=== PATIENT | female | born 1955 | race Caucasian/White ===

== ENCOUNTER → 2017-12-23 | Outpatient (CLI) | payer BC | END | disposition home or self-care (01) | LOC: KCIC MAMMO 10:14 | DX: Z12.31 Encounter for screening mammogram for malignant neoplasm of breast (principal) | CPT/HCPCS: 77067 ==

== ENCOUNTER 2019-02-07 10:00 | Emergency (ER) | payer BC ==
[~2019-02-07] VITALS: Ht 149.9 cm; Wt 81.6 kg
[2019-02-07] MEDS ORDERED: NITROGLYCERIN SUBLINGUAL 0.4 MG BOTTLE OF 25. SL PRN (10:30)
[2019-02-07] MEDS ORDERED: ASPIRIN CHEWABLE 81 MG TABLET. PO ONE (10:30)
[2019-02-07 10:33] LABS: BASO # 0.1 x10^3/uL (0.0-0.2); BASO % 1 % (0-3); EOS # 0.3 x10^3/uL (0.0-0.7); EOS % 3 % (0-3); HEMATOCRIT 41.1 % (36.0-47.0); HEMOGLOBIN 13.5 g/dL (12.0-15.5); LYMPH # 3.5 x10^3/uL (1.0-4.8); LYMPH % 35 % (24-48); MEAN CORPUSCULAR HEMOGLOBIN 29 pg (25-35); MEAN CORPUSCULAR HGB CONC 33 g/dL (31-37); MEAN CORPUSCULAR VOLUME 90 fL (79-100); MONO # 0.9 x10^3/uL (0.0-1.1); MONO % 9 % (0-9); NEUT # 5.4 x10^3uL (1.8-7.7); NEUT % 53 % (31-73); PLATELET COUNT 324 x10^3/uL (140-400); RED BLOOD COUNT 4.59 x10^6/uL (3.50-5.40); RED CELL DISTRIBUTION WIDTH 13.8 % (11.5-14.5); WHITE BLOOD COUNT 10.2 x10^3/uL (4.0-11.0)
[2019-02-07 10:46] LABS: CALCIUM 9.3 mg/dL (8.5-10.1); CREATININE 0.6 mg/dL (0.6-1.0); GFR 101.6; POTASSIUM 4.5 mmol/L (3.5-5.1)
--- NOTE | 2019-02-07 10:49 | PHYS DOC ---
Past Medical History Additional Past Medical Histor: Prior uterine CA Past Surgical History: Cholecystectomy, Hysterectomy, Tubal ligation Additional Information: Smoked for 35-40 years. Quit one year ago. Alcohol Use: Rarely Drug Use: None Adult General Chief Complaint Chief Complaint: CHEST PAIN HPI HPI Patient is a 63 year old female who presents with complaining of chest pain. Patient complaining of sudden onset of pressure pain in substernal area since yesterday as a constant pain with radiation to her back. Patient complaining of shortness of breath without dizziness or nausea, palpitation, paresthesia. Patient states the pain was due to maternal last day and this morning was 4/10 with discomfort feeling in her chest and rated her pain 4/10 after taking 2 Advil at 8:30 today. Patient denies history of diabetes, hypertension, coronary artery disease, smoking, dyslipidemia. Patient has positive family history of coronary artery disease. Review of Systems Review of Systems Constitutional: Denies fever or chills [] Eyes: Denies change in visual acuity, redness, or eye pain [] HENT: Denies nasal congestion or sore throat [] Respiratory: Denies cough or shortness of breath [] Cardiovascular: No additional information not addressed in HPI [] GI: Denies abdominal pain, nausea, vomiting, bloody stools or diarrhea [] : Denies dysuria or hematuria [] Musculoskeletal: Denies back pain or joint pain [] Integument: Denies rash or skin lesions [] Neurologic: Denies headache, focal weakness or sensory changes [] Endocrine: Denies polyuria or polydipsia [] All other systems were reviewed and found to be within normal limits, except as documented in this note. Current Medications Current Medications Current Medications Medications (Trade) Dose Ordered Sig/Mimi Start Time Stop Time Status Last Admin Dose Admin Aspirin (Children'S Aspirin) 324 mg 1X ONCE 02/07/19 10:30 02/07/19 10:31 UNV 02/07/19 10:29 324 MG Nitroglycerin (Nitrostat) 0.4 mg PRN Q5MIN PRN 02/07/19 10:30 02/08/19 10:29 UNV 02/07/19 10:29 0.4 MG Physical Exam Physical Exam Constitutional: Well developed, well nourished, mild distress, non-toxic appearance. [] HENT: Normocephalic, atraumatic, oropharynx moist. Eyes: PERRLA, EOMI, conjunctiva normal, no discharge. [] Neck: Normal range of motion, no tenderness, supple, no stridor. [] Cardiovascular:Heart rate regular rhythm, no murmur [] Lungs & Thorax: Bilateral breath sounds clear to auscultation [] Abdomen: Bowel sounds normal, soft, no tenderness, no masses, no pulsatile masses. [] Skin: Warm, dry, no erythema, no rash. [] Back: No tenderness, no CVA tenderness. [] Extremities: No tenderness, no cyanosis, no clubbing, ROM intact, no edema. [] Neurologic: Alert and oriented X 3, normal motor function, normal sensory f unction, no focal deficits noted. [] Psychologic: Affect normal, judgement normal, mood normal. [] Current Patient Data Vital Signs Vital Signs Date Time Temp Pulse Resp B/P (MAP) Pulse Ox O2 Delivery O2 Flow Rate FiO2 02/07/19 10:47 72 16 123/64 (83) 97 Room Air 02/07/19 10:04 98.1 98.1 Lab Values Laboratory Tests Test 02/07/19 10:07 White Blood Count 10.2 x10^3/uL (4.0-11.0) Red Blood Count 4.59 x10^6/uL (3.50-5.40) Hemoglobin 13.5 g/dL (12.0-15.5) Hematocrit 41.1 % (36.0-47.0) Mean Corpuscular Volume 90 fL (79-100) Mean Corpuscular Hemoglobin 29 pg (25-35) Mean Corpuscular Hemoglobin Concent 33 g/dL (31-37) Red Cell Distribution Width 13.8 % (11.5-14.5) Platelet Count 324 x10^3/uL (140-400) Neutrophils (%) (Auto) 53 % (31-73) Lymphocytes (%) (Auto) 35 % (24-48) Monocytes (%) (Auto) 9 % (0-9) Eosinophils (%) (Auto) 3 % (0-3) Basophils (%) (Auto) 1 % (0-3) Neutrophils # (Auto) 5.4 x10^3uL (1.8-7.7) Lymphocytes # (Auto) 3.5 x10^3/uL (1.0-4.8) Monocytes # (Auto) 0.9 x10^3/uL (0.0-1.1) Eosinophils # (Auto) 0.3 x10^3/uL (0.0-0.7) Basophils # (Auto) 0.1 x10^3/uL (0.0-0.2) D-Dimer (Latisha) 0.28 ug/mlFEU (0.00-0.50) Sodium Level 140 mmol/L (136-145) Potassium Level 4.5 mmol/L (3.5-5.1) Chloride Level 104 mmol/L (98-107) Carbon Dioxide Level 28 mmol/L (21-32) Anion Gap 8 (6-14) Blood Urea Nitrogen 20 mg/dL (7-20) Creatinine 0.6 mg/dL (0.6-1.0) Estimated GFR (Cockcroft-Gault) 101.6 BUN/Creatinine Ratio 33 (6-20) H Glucose Level 103 mg/dL (70-99) H Calcium Level 9.3 mg/dL (8.5-10.1) Magnesium Level 2.0 mg/dL (1.8-2.4) Total Bilirubin 0.2 mg/dL (0.2-1.0) Aspartate Amino Transferase (AST) 21 U/L (15-37) Alanine Aminotransferase (ALT) 31 U/L (14-59) Alkaline Phosphatase 82 U/L (46-116) Creatine Kinase 90 U/L (26-192) Creatine Kinase MB (Mass) 1.0 ng/mL (0.0-3.6) Creatine Kinase MB Relative Index 1.1 % (0-4) Troponin I Quantitative < 0.017 ng/mL (0.000-0.055) DX-Stj-T-Type Natriuretic Peptide 44 pg/mL (0-124) Total Protein 7.1 g/dL (6.4-8.2) Albumin 3.8 g/dL (3.4-5.0) Albumin/Globulin Ratio 1.2 (1.0-1.7) Lipase 178 U/L (73-393) Laboratory Tests 02/07/19 10:07 Laboratory Tests 02/07/19 10:07 EKG EKG EKG interpreted by me. EKG at 08 showed normal sinus rhythm at rate of 76, normal [place] and QT intervals, no acute ST and T-wave abnormalities. Radiology/Procedures Radiology/Procedures [facility] [address] [place] [address] IMAGING REPORT Signed PATIENT: DION SANTO ACCOUNT: [id number] : 1955 LOCATION: ER AGE: 63 SEX: F EXAM STATUS: REG ER ORD. PHYSICIAN: DEIDRA PAINTER MD REASON: chest pain/pressure since yesterday PROCEDURE: CHEST PA & LATERAL PA and lateral chest radiographs 02/07/2019 CLINICAL HISTORY: Chest pain and pressure since yesterday. PA and lateral digital radiographs of the chest were obtained. The cardiac silhouette is borderline enlarged. The thoracic aorta is minimally tortuous. Atherosclerotic calcification of the thoracic aorta is seen. Surgical clips are seen within the right upper quadrant abdomen consistent with a cholecystectomy. No acute pulmonary infiltrate is seen. No pleural effusion or pneumothorax is noted. Degenerative changes are seen involving the thoracic spine. IMPRESSION: No acute abnormality is seen. Electronically signed by: Antoine Winkler MD (02/07/2019 10:51 AM) [facility] DICTATED and SIGNED BY: ANTOINE WINKLER MD DATE: 02/07/19 0503 Course & Med Decision Making Course & Med Decision Making Pertinent Labs and Imaging studies reviewed. (See chart for details) Evaluation of patient in ER showed 63-year-old female patient with complaining of substernal chest pain and shortness of breath since yesterday as a constant pain. Patient doesn't have any cardiac risk factors except for family history of coronary artery disease. Patient had unremarkable physical exam and EKG and ch est x-ray and labs including cardiac enzymes and d-dimer. Patient felt better with treatment in ER. Patient was advised to follow-up with her primary care physician for more cardiac workup. Plan discharge patient home to diagnose of noncardiac chest pain. Dragon Disclaimer Dragon Disclaimer This electronic medical record was generated, in whole or in part, using a voice recognition dictation system. Departure Departure Impression: Primary Impression: Acute chest pain Additional Impression: Dyspnea Disposition: HOME, SELF-CARE (at 1136) Condition: IMPROVED Referrals: JUDITH KAT MD (PCP) Patient Instructions: Chest Pain (Nonspecific), Shortness of Breath Additional Instructions: Follow-up with your primary care physician in 2-3 days for more evaluation Return to ER if not getting better Scripts Tramadol Hcl (ULTRAM) 50 Mg Tablet 50 MG PO Q6HRS PRN for PAIN, #14 TAB 0 Refills Prov: DEIDRA PAINTER MD 02/07/19 Problem Qualifiers Additional Impression: Dyspnea Dyspnea type: shortness of breath Qualified Codes: R06.02 - Shortness of breath DEIDRA PAINTER MD February 07, 2019 10:49
[2019-02-07 10:53] LABS: ALBUMIN 3.8 g/dL (3.4-5.0); ALBUMIN/GLOBULIN RATIO 1.2 (1.0-1.7); TOTAL BILIRUBIN 0.2 mg/dL (0.2-1.0); TOTAL PROTEIN 7.1 g/dL (6.4-8.2)
--- NOTE | 2019-02-07 10:54 | RAD ---
PA and lateral chest radiographs 02/07/2019 CLINICAL HISTORY: Chest pain and pressure since yesterday. PA and lateral digital radiographs of the chest were obtained. The cardiac silhouette is borderline enlarged. The thoracic aorta is minimally tortuous. Atherosclerotic calcification of the thoracic aorta is seen. Surgical clips are seen within the right upper quadrant abdomen consistent with a cholecystectomy. No acute pulmonary infiltrate is seen. No pleural effusion or pneumothorax is noted. Degenerative changes are seen involving the thoracic spine. IMPRESSION: No acute abnormality is seen. Electronically signed by: Antoine Winkler MD (02/07/2019 10:51 AM) [facility] [place]
[2019-02-07] MEDS ORDERED: TRAM-48 PO (11:38)
[2019-02-07 11:54] VITALS: BP 121/68
--- NOTE | 2019-02-08 16:37 | EKG ---
[facility] [address] [place] [address] Test Date: 2019-02-07 Test Time: 10:06:24 Pat Name: DION SANTO Department: Room: Gender: F Operations Program Manager: : 1955 Requested By: DEIDRA PAINTER Order Number: [id number] Reading MD: Timmy Ramirez MD Measurements Intervals [place] Rate: 76 P: 62 MN: 154 QRS: 36 QRSD: 74 T: 55 QT: 362 QTc: 411 Interpretive Statements SINUS RHYTHM Electronically Signed On 03-05-2019 14:46:51 CDT by Timmy Ramirez MD
== END 2019-02-07 12:09 | disposition home or self-care (01) ==
LOC: ER 10:00
DX: R07.89 Other chest pain (principal); R06.02 Shortness of breath; Z79.82 Long term (current) use of aspirin; Z90.49 Acquired absence of other specified parts of digestive tract; Z90.710 Acquired absence of both cervix and uterus; Z98.51 Tubal ligation status; Z87.891 Personal history of nicotine dependence
CPT/HCPCS: 36415; 71046; 80053; 82553; 83690; 83735; 83880; 84484; 85025; 85379; 93005; 99285-25

== ENCOUNTER → 2019-08-25 | Outpatient (CLI) | payer BC ==
[~2019-08-25] MED LIST: TRAM-48 PO
--- NOTE | 2019-08-25 18:20 | KCIC ---
7 view lumbar spine HISTORY: Low back pain. FINDINGS: Surgical clips in the right upper quadrant. Mild left convexity lumbar scoliosis. No evidence of spondylolysis. Degenerative changes at the lower lumbar facet joints. Multilevel thoracolumbar marginal spurring. Vertebral body height appears maintained. No evidence of acute fracture or aggressive bone destruction. Partially visualized aorta is calcified. Flexion and extension images demonstrate no significant anterior or posterior subluxation. IMPRESSION: Degenerative changes. 3 view sacrum HISTORY: Low back pain. Sacral arthritis. FINDINGS: Sacral alignment appears grossly intact. No obvious displaced fracture is seen. Sacroiliac joints appear mildly degenerative but are otherwise intact and appearance. IMPRESSION: No definite acute radiographic findings. Electronically signed by: Jose Parham MD (08/25/2019 6:17 PM) [id number]
== END | disposition home or self-care (01) ==
LOC: KCIC 11:55
PROVIDERS: ATTEND Family Medicine
DX: M47.817 Spondylosis without myelopathy or radiculopathy, lumbosacral region (principal); M46.05 Spinal enthesopathy, thoracolumbar region; M41.86 Other forms of scoliosis, lumbar region; I70.0 Atherosclerosis of aorta
CPT/HCPCS: 72114; 72220

== ENCOUNTER → 2019-12-03 | Outpatient (CLI) | payer BC ==
--- NOTE | 2019-12-03 15:49 | KCIC ---
Bilateral digital screening mammograms: Reason for examination: Routine screening. Comparison is made to previous study dated 12/23/2017. Interpretation is made with the benefit of CAD. The skin and nipples show no abnormalities. No abnormal lymph nodes are seen. The breast parenchyma is predominantly fatty. (Breast density: Category A.) There are no dominant masses, suspicious calcifications or architectural distortions. Impression: No evidence of malignancy. Recommend routine screening. BI-RADS Category 1: Negative. "Our facility is accredited by the [employer] Mammography Program." This patient's information has been entered into a reminder system for the patient to be notified with the results of her examination and a target date for the next mammogram. Electronically signed by: Karli Santos MD (12/03/2019 3:46 PM) [id number]
== END | disposition home or self-care (01) ==
LOC: KCIC MAMMO 14:14
PROVIDERS: ATTEND Family Medicine
DX: Z12.31 Encounter for screening mammogram for malignant neoplasm of breast (principal)
CPT/HCPCS: 77067

== ENCOUNTER 2020-03-15 09:35 | Inpatient (IN) | payer BC ==
[~2020-03-15] VITALS: Ht 149.9 cm; Wt 92.5 kg
[2020-03-15] MEDS ORDERED: ASPIRIN 325 MG TABLET PO ONE (10:00)
[2020-03-15] MEDS ORDERED: IV NORMAL SALINE 1000ML BAG 1,000 ML IV ONE (10:00)
--- NOTE | 2020-03-15 10:10 | EKG ---
[facility] [address] [place] [address] Test Date: 2020-03-15 Test Time: 09:41:48 Pat Name: DION SANTO Department: Room: Gender: F Aquatics Specialist: RADHA : 1955 Requested By: HOOD HERNANDES Order Number: [id number] Reading MD: Measurements Intervals [place] Rate: 78 P: 57 SD: 150 QRS: 34 QRSD: 74 T: 51 QT: 360 QTc: 414 Interpretive Statements SINUS RHYTHM VENTRICULAR PREMATURE COMPLEX(ES) ATRIAL PREMATURE COMPLEX(ES) ABNORMAL ECG RI6.01 No previous ECG available for comparison
[2020-03-15 10:11] LABS: BASO # 0.1 x10^3/uL (0.0-0.2); BASO % 1 % (0-3); EOS # 0.2 x10^3/uL (0.0-0.7); EOS % 3 % (0-3); HEMATOCRIT 39.5 % (36.0-47.0); HEMOGLOBIN 13.5 g/dL (12.0-15.5); LYMPH # 2.7 x10^3/uL (1.0-4.8); LYMPH % 28 % (24-48); MEAN CORPUSCULAR HEMOGLOBIN 30 pg (25-35); MEAN CORPUSCULAR HGB CONC 34 g/dL (31-37); MEAN CORPUSCULAR VOLUME 89 fL (79-100); MONO # 0.7 x10^3/uL (0.0-1.1); MONO % 8 % (0-9); NEUT # 5.9 x10^3/uL (1.8-7.7); NEUT % 62 % (31-73); PLATELET COUNT 326 x10^3/uL (140-400); RED BLOOD COUNT 4.44 x10^6/uL (3.50-5.40); RED CELL DISTRIBUTION WIDTH 13.3 % (11.5-14.5); WHITE BLOOD COUNT 9.7 x10^3/uL (4.0-11.0)
[2020-03-15 10:17] LABS: CALCIUM 8.7 mg/dL (8.5-10.1); CREATININE 0.8 mg/dL (0.6-1.0); GFR 72.7; POTASSIUM 4.2 mmol/L (3.5-5.1)
[2020-03-15 10:19] LABS: PARTIAL THROMBOPLASTIN TIME 26 SEC (24-38); PROTHROMBIN TIME PATIENT 12.2 SEC (11.7-14.0)
[2020-03-15 10:23] LABS: ALBUMIN 3.6 g/dL (3.4-5.0); MAGNESIUM 1.9 mg/dL (1.8-2.4); TOTAL BILIRUBIN 0.4 mg/dL (0.2-1.0); TOTAL PROTEIN 7.2 g/dL (6.4-8.2)
[2020-03-15 10:24] LABS: D-DIMER < 0.27 ug/mlFEU (0.00-0.50)
[2020-03-15 10:32] LABS: CREATINE KINASE 72 U/L (26-192)
--- NOTE | 2020-03-15 10:52 | PHYS DOC ---
Past Medical History Past Medical History: Cancer Additional Past Medical Histor: Prior uterine CA Past Surgical History: Cholecystectomy, Hysterectomy, Tubal ligation Smoking Status: Former Smoker Alcohol Use: Rarely Drug Use: None General Adult EDM: Chief Complaint: CHEST PAIN HPI: HPI: Patient is a 64 year old female presents with report of chest "tightness" and shortness of breath x 1 week which has progressively worsened. Reports discomfort currently 1/10. Reports worse with exertion. Denies fever/chills. Denies cough. Reports cardiac risk factors of family history of CAD and former smoker. Denies leg swelling or calf tenderness. Patient reports she recently traveled to [facility] 2 weeks ago but stayed in her cabin and tried to socially distance herself. Patient does live with her daughter who is a local EMT. Review of Systems: Review of Systems: Constitutional: Denies fever or chills Eyes: Denies redness or eye pain HENT: Denies nasal congestion or sore throat Respiratory: Denies cough; reports shortness of breath and dyspnea on exertion Cardiovascular: Reports chest pain; denies palpitations GI: Denies abdominal pain, nausea, or vomiting : Denies dysuria or hematuria Musculoskeletal: Denies back pain or joint pain Integument: Denies rash or skin lesions Neurologic: Denies headache, focal weakness or sensory changes Complete systems were reviewed and found to be within normal limits, except as documented in this note. Heart Score: HEART Score for Chest Pain: HEART Score for Chest Pain Response (Comments) Value History Moderately Suspicious 1 ECG Normal 0 Age >45 - < 65 1 Risk Factors 1 or 2 Risk Factors 1 Troponin < Normal Limit 0 Total 3 Risk Factors: Risk Factors: DM, Current or recent (<one month) smoker, HTN, HLP, family history of CAD, obesity. Risk Scores: Score 0 - 3: 2.5% MACE over next 6 weeks - Discharge Home Score 4 - 6: 20.3% MACE over next 6 weeks - Admit for Clinical Observation Score 7 - 10: 72.7% MACE over next 6 weeks - Early Invasive Strategies Current Medications: Current Medications Medications (Trade) Dose Ordered Sig/Mimi Start Time Stop Time Status Last Admin Dose Admin Aspirin (So Aspirin) 325 mg 1X ONCE 03/15/20 10:00 03/15/20 10:01 DC 03/15/20 10:18 325 MG Sodium Chloride 1,000 ml @ 1,000 mls/hr 1X ONCE 03/15/20 10:00 03/15/20 10:59 03/15/20 10:18 1,000 MLS/HR Allergies: Allergies: Allergies Coded Allergies Type Severity Reaction Last Updated Verified No Known Drug Allergies 03/15/20 No Physical Exam: PE: Constitutional: Well developed, well nourished, no acute distress, non-toxic appearance HENT: Normocephalic, atraumatic, oropharynx moist Eyes: Conjunctiva normal, no discharge Neck: Normal range of motion, no tenderness, supple Cardiovascular: Heart rate normal, regular rhythm Lungs & Thorax: No respiratory distress, equal chest rise and fall Abdomen: Soft, no tenderness Skin: Warm, dry, no erythema, no rash Back: No tenderness, no CVA tenderness Extremities: No tenderness, ROM intact, no edema Neurologic: Alert and oriented X 3, no focal deficits noted Psychologic: Affect normal, judgment normal Current Patient Data: Labs: Laboratory Tests Test 03/15/20 09:17 03/15/20 09:59 White Blood Count 9.7 x10^3/uL (4.0-11.0) Red Blood Count 4.44 x10^6/uL (3.50-5.40) Hemoglobin 13.5 g/dL (12.0-15.5) Hematocrit 39.5 % (36.0-47.0) Mean Corpuscular Volume 89 fL (79-100) Mean Corpuscular Hemoglobin 30 pg (25-35) Mean Corpuscular Hemoglobin Concent 34 g/dL (31-37) Red Cell Distribution Width 13.3 % (11.5-14.5) Platelet Count 326 x10^3/uL (140-400) Neutrophils (%) (Auto) 62 % (31-73) Lymphocytes (%) (Auto) 28 % (24-48) Monocytes (%) (Auto) 8 % (0-9) Eosinophils (%) (Auto) 3 % (0-3) Basophils (%) (Auto) 1 % (0-3) Neutrophils # (Auto) 5.9 x10^3/uL (1.8-7.7) Lymphocytes # (Auto) 2.7 x10^3/uL (1.0-4.8) Monocytes # (Auto) 0.7 x10^3/uL (0.0-1.1) Eosinophils # (Auto) 0.2 x10^3/uL (0.0-0.7) Basophils # (Auto) 0.1 x10^3/uL (0.0-0.2) Sodium Level 142 mmol/L (136-145) Potassium Level 4.2 mmol/L (3.5-5.1) Chloride Level 103 mmol/L (98-107) Carbon Dioxide Level 30 mmol/L (21-32) Anion Gap 9 (6-14) Blood Urea Nitrogen 16 mg/dL (7-20) Creatinine 0.8 mg/dL (0.6-1.0) Estimated GFR (Cockcroft-Gault) 72.7 BUN/Creatinine Ratio 20 (6-20) Glucose Level 108 mg/dL (70-99) H Lactic Acid Level 1.0 mmol/L (0.4-2.0) Calcium Level 8.7 mg/dL (8.5-10.1) Magnesium Level 1.9 mg/dL (1.8-2.4) Total Bilirubin 0.4 mg/dL (0.2-1.0) Aspartate Amino Transferase (AST) 19 U/L (15-37) Alanine Aminotransferase (ALT) 28 U/L (14-59) Alkaline Phosphatase 73 U/L (46-116) Creatine Kinase 72 U/L (26-192) Creatine Kinase MB (Mass) 0.9 ng/mL (0.0-3.6) Creatine Kinase MB Relative Index % (0-4) Troponin I Quantitative < 0.017 ng/mL (0.000-0.055) HH-Ldy-X-Type Natriuretic Peptide 109 pg/mL (0-124) Total Protein 7.2 g/dL (6.4-8.2) Albumin 3.6 g/dL (3.4-5.0) Albumin/Globulin Ratio 1.0 (1.0-1.7) Lipase 183 U/L (73-393) Prothrombin Time 12.2 SEC (11.7-14.0) Prothrombin Time INR 0.9 (0.8-1.1) Activated Partial Thromboplast Time 26 SEC (24-38) D-Dimer (Latisha) < 0.27 ug/mlFEU Laboratory Tests 03/15/20 09:17 Laboratory Tests 03/15/20 09:17 Vital Signs: Vital Signs Date Time Temp Pulse Resp B/P (MAP) Pulse Ox O2 Delivery O2 Flow Rate FiO2 03/15/20 09:37 98.3 76 20 174/77 (109) 95 Room Air 98.3 EKG: EKG: @0941 NSR at 78bpm with PVCs, NO ST elevation, QRS 74ms, QT/QTc 360/414ms Radiology/Procedures: Radiology/Procedures: PROCEDURE: CHEST AP ONLY CHEST AP ONLY History: Chest pain Comparison: February 07, 2019 Findings: Single view of the chest is submitted. Cardiac silhouette is stable, borderline enlarged. There is no new infiltrate, pleural fluid, or pneumothorax. Mild interstitial opacity greater near the lung bases is similar. Impression: 1. No acute radiographic abnormality is identified. Electronically signed by: Siddharth Chavez MD (03/15/2020 11:01 AM) [id number] Course & Med Decision Making: Course & Med Decision Making Pertinent Labs and Imaging studies reviewed. (See chart for details) Patient with cardiac risk factors presents with chest discomfort and dyspnea with exertion. Denies fever. EKG stable. Labs obtained and posted to chart. Initial troponin WNL. D-dimer also WNL. CXR without acute process. Cannot fully exclude COVID-19. Patient reports going to cabin in [facility] but wasn't around anyone except patient's EMT daughter (whom she lives with). COVID testing therefore obtained. Patient requiring admission for further evaluation and treatment. Discussed with Dr. Bird (hospitalist) who is in agreement with admission. Discussed findings and plan with patient and family, who acknowledge understanding and agreement. COVID-19 CRITERIA: The patient was evaluated during the global COVID-19 pandemic, and that diagnosis was suspected/considered upon their initial presentation. Their evaluation, treatment and testing was consistent with current guidelines for patients who present with complaints or symptoms that may be related to COVID-19. Geovanny Disclaimer: Geovanny Disclaimer: This electronic medical record was generated, in whole or in part, using a voice recognition dictation system. Departure Departure Impression: Primary Impression: Chest pain Qualified Codes: R07.9 - Chest pain, unspecified Additional Impressions: Dyspnea on exertion Suspected 2018 novel coronavirus infection Disposition: ADMITTED INPATIENT (observation) Admitting Physician: HIMS (Amery) Condition: STABLE Referrals: JUDITH KAT MD (PCP) Justicifation of Admission Dx: Justifications for Admission: Justification of Admission Dx: Yes Comments: Observation: Dyspnea on exertion, chest pain r/o acs COVID-19 Assessment: COVID-19 Patient Risks: Age 65 or older: No Sign of co-morbidity: Yes Exp to person + for COVID: No Exp to PUI: No Travel from affected area: Yes Lower respiratory symptoms: Yes Fever: No PPE Use: Full PPE with N95 mask or PAPR: Yes HOOD HERNANDES DO Mar 15, 2020 10:52
[2020-03-15] MEDS ORDERED: fentaNYL PF VIAL 100 MCG/2 ML VIAL IV PRN (11:00)
[2020-03-15] MEDS ORDERED: ONDANSETRON PF 4 MG/2 ML VIAL. IV PRN (11:00)
--- NOTE | 2020-03-15 11:03 | RAD ---
CHEST AP ONLY History: Chest pain Comparison: February 07, 2019 Findings: Single view of the chest is submitted. Cardiac silhouette is stable, borderline enlarged. There is no new infiltrate, pleural fluid, or pneumothorax. Mild interstitial opacity greater near the lung bases is similar. Impression: 1. No acute radiographic abnormality is identified. Electronically signed by: Siddharth Chavez MD (03/15/2020 11:01 AM) [id number]
[2020-03-15 11:19] LABS: BILIRUBIN,URINE NEGATIVE (NEG); CLARITY,URINE CLEAR; COLOR,URINE YELLOW; NITRITE,URINE NEGATIVE (NEG); PROTEIN,URINE NEGATIVE (NEG-TRACE); UROBILINOGEN,URINE 0.2 mg/dL (0.2 mg/dL)
[2020-03-15 11:39] LABS: BACTERIA,URINE 0 /HPF (0-FEW); RBC,URINE 0 /HPF (0-2); SQUAMOUS EPITHELIAL CELL,UR FEW /LPF; WBC,URINE OCC /HPF (0-4)
[2020-03-15] MEDS ORDERED: traMADol 50 MG TABLET PO PRN (12:00)
--- NOTE | 2020-03-15 12:11 | HP ---
ADMIT DATE: 03/15/2020 CHIEF COMPLAINT: Chest pain and shortness of breath. HISTORY OF PRESENT ILLNESS: The patient is a pleasant elderly female who presents with chest pain. She has been having some associated fluttering in her chest. She also had some shortness of breath that has been occurring off and on for several weeks, but it got worse today. I discussed the case with ER physician. We are going to admit the patient and rule out COVID-19 because her chest x-ray is slightly abnormal. We are also going to be consulting Cardiology and Pulmonary Medicine. PAST MEDICAL HISTORY: Hysterectomy, cholecystectomy, uterine cancer, tubal ligation, previous tobacco abuse, she quit 2 years ago. ALLERGIES: None. FAMILY HISTORY: Diabetes. SOCIAL HISTORY: She does not smoke currently (she quit 2 years ago). No drinking or drugs. She is retired. MEDICATIONS: Reviewed, please refer to the MRAD. REVIEW OF SYSTEMS: GENERAL: No history of weight change, weakness or fevers. SKIN: No bruising, hair changes or rashes. EYES: No blurred, double or loss of vision. NOSE AND THROAT: No history of nosebleeds, hoarseness or sore throat. HEART: No history of palpitations, chest pain or shortness of breath on exertion. LUNGS: Denies cough, hemoptysis, wheezing or shortness of breath. GASTROINTESTINAL: Denies changes in appetite, nausea, vomiting, diarrhea or constipation. GENITOURINARY: No history of frequency, urgency, hesitancy or nocturia. NEUROLOGIC: Denies history of numbness, tingling, tremor or weakness. PSYCHIATRIC: No history of panic, anxiety or depression. ENDOCRINE: No history of heat or cold intolerance, polyuria or polydipsia. EXTREMITIES: Denies muscle weakness, joint pain, pain on walking or stiffness. PHYSICAL EXAMINATION: VITALS: Within normal limits and are stable. GENERAL: No apparent distress. Alert and oriented. HEENT: Normal cephalic atraumatic, external auditory canals are patent EYES: Extraocular muscles are intact, pupils are equally round and reactive to light and accommodation MUSCULOSKELETAL: Well developed, well nourished, good range of motion ENDOCRINE: No thyromegaly was palpated LYMPHATICS: No cervical chain or axillary nodes were noted HEMATOPOIETIC: No bruising NECK: Supple, no JVD, no thyromegaly was noted. LUNGS: Clear to auscultation in all lung soto without rhonchi or wheezing. HEART: RRR, S1, S2 present. Peripheral pulses intact, no obvious murmurs were noted. ABDOMEN: Soft, nontender. Positive bowel sounds no organomegaly, normal bowel sounds. EXTREMITIES: Without any cyanosis, clubbing, or edema. Pedal pulses intact, Homans sign is negative. NEUROLOGIC: Normal speech, normal tone. A & O x3, moves all extremities, no obvious focal deficits. PSYCHIATRIC: Normal affect, normal mood. Stable. SKIN: No ulcerations or rashes, good skin turgor, no jaundice. VASCULAR: Good capillary refill, neurovascular bundle appears to be intact. LABORATORY DATA: Hematology is normal. Electrolytes are normal. Urinalysis is negative. INR is 0.9. Chest x-ray shows no acute radiographic abnormality, but the cardiac silhouette is borderline. There is mild interstitial opacity, greater near lung bases. ASSESSMENT AND PLAN: Chest pain, palpitation, shortness of breath. The patient has been admitted. We will check serial enzymes, serial EKGs, cardiac monitoring, rule out COVID-19. Consult Pulmonary, consult Cardiology. Home meds, DVT prophylaxis. Full code. YULI MACIEL DO DR: MELVIN/krista JOB#: [id number] / [id number]
[2020-03-15] MEDS ORDERED: IOHEXOL 350 MG/ML 100 ML VIAL. IV ONE ×2 (13:00→13:15)
[2020-03-15] MEDS ORDERED: CONTRAST GIVEN. MC PRN (13:15)
--- NOTE | 2020-03-15 13:49 | CONS ---
DATE OF CONSULTATION: 03/15/2020 PULMONARY CONSULTATION ATTENDING PHYSICIAN: Dr. Bird. REASON FOR CONSULTATION: Chest pain. HISTORY OF PRESENT ILLNESS: The patient is a 64-year-old morbidly obese patient with a BMI of 38. She also has a history of at least 25 years of tobacco use. She presented to the hospital with 2-week history of chest tightness. There was some associated fluttering in her chest as well. She has no cough, no fever, no chills. She describes chest pain as central and going to right to the left. She had some shortness of breath as well. No leg swelling. No nausea, vomiting. No diarrhea. She also has a history of snoring and daytime fatigue. Never had formal sleep study. Chest x-ray was reviewed and was clear. PAST MEDICAL HISTORY: History of morbid obesity, history of tobacco use, possible underlying COPD. PAST SURGICAL HISTORY: Hysterectomy, cholecystectomy, uterine cancer, tubal ligation. ALLERGIES: None. MEDICATIONS: Reviewed as listed in the MRAD. REVIEW OF SYSTEMS: Twelve-point system obtained. Pertinent positives discussed in my history of present illness, otherwise noncontributory. All systems that were negative were reviewed as well. SOCIAL HISTORY: Smoked for 25 years before quitting few years ago. FAMILY HISTORY: Noncontributory to lungs. PHYSICAL EXAMINATION: VITAL SIGNS: Reviewed. Blood pressure on the high side, pulse ox 100% on room air. GENERAL: Visual exam done due to COVID-19 pandemic suspect. No obvious respiratory distress. She is obese. No skin rash. LABORATORY DATA: Reviewed. White cell count 9.7, hemoglobin is 13.5 and platelets are 326. D-dimer less than 0.27. IMPRESSION: 1. Chest tightness for the last 2 weeks along with some intermittent dyspnea. A chest x-ray is clear. No fever. No chills. The differential diagnosis would include anginal pain. The possibility of thromboembolic disease seems less likely in the setting of normal D-dimer, but we will do a CTA chest. 2. 25+ years of tobacco, underlying suspected chronic obstructive pulmonary disease. 3. Less clinical suspicion for COVID-19. 4. Morbid obesity and clinical suspicion for obstructive sleep apnea. RECOMMENDATIONS: 1. Discussed with the patient and the daughter. We will use p.r.n. oxygen. 2. I will do CTA chest for further evaluation. 3. Cardiology consult. 4. Weight loss is advised. 5. Sleep study as an outpatient. 6. Discussed with RN. JESSICA RIVERS MD DR: SIS/krista JOB#: [id number] / [id number] KALLI
[2020-03-15 14:57] VITALS: BP 128/62
[2020-03-15 19:00] VITALS: BP 139/68
[2020-03-15 23:00] VITALS: BP 138/64
[2020-03-16 02:55] VITALS: BP 129/60
[2020-03-16 03:37] LABS: CHOLESTEROL/HDL RATIO 4.2
[2020-03-16 07:00] VITALS: BP 131/80
[2020-03-16] MEDS ORDERED: IOHEXOL 350 MG/ML 100 ML VIAL. IV ONE (07:15)
--- NOTE | 2020-03-16 08:19 | RAD ---
CT ANGIOGRAPHY CHEST INDICATION: CHEST PAIN Comparison: Chest radiograph 03/15/2020. TECHNIQUE: Following the uneventful administration of intravenous contrast, 100 cc Omnipaque 350, axial CT sections were obtained through the lungs and upper abdomen. Multiplanar reconstructions and MIP images were obtained. PQRS compliance statement: One or more of the following individualized dose reduction techniques were utilized for this examination: 1. Automated exposure control 2. Adjustment of the mA and/or kV according to patient size 3. Use of iterative reconstruction technique FINDINGS: Lungs and Airways: Mild bilateral tree-in-bud opacities and centrilobular groundglass nodules with a few scattered groundglass opacities. Paraseptal and centrilobular emphysema. No abnormality of the central airways. Pleura: The pleural spaces are normal. Heart and Mediastinum: The visualized thyroid is normal in size and attenuation. No axillary or supraclavicular lymphadenopathy. Mildly enlarged right hilar lymph node measures 1 cm short axis. The heart and pericardium are within normal limits. The great vessels of the thorax are normal. Abdomen: Cholecystectomy. Bones and Soft Tissues: Degenerative changes of the spine. IMPRESSION: 1. No evidence of pulmonary thromboembolic disease. 2. Mild bilateral tree-in-bud opacities and centrilobular groundglass nodules with a few scattered groundglass opacities, likely representing infectious bronchiolitis or possibly respiratory bronchiolitis (given history of smoking). 2-3 month follow-up chest CT is recommended to assess stability/resolution. 3. Mildly enlarged right hilar lymph node, possibly reactive. Attention on follow-up imaging. Electronically signed by: Siddharth Sharma MD (03/16/2020 8:16 AM) [id number]
--- NOTE | 2020-03-16 08:32 | PDOC2 ---
ROCK MAGALLON HEAD PAPER TESTER 03/16/20 0832: CARDIAC CONSULT DATE OF CONSULT Date of Consult DATE: 03/16/20 TIME: 08:17 REASON FOR CONSULT Reason for Consult: Chest pain, dyspnea REFERRING PHYSICIAN Referring Physician: Claudine SOURCE Source: Chart review, Patient HISTORY OF PRESENT ILLNESS HISTORY OF PRESENT ILLNESS This is a pleasant 64 yo female admitted for complains of chest pain and shortness of breath. Reported that she went to the [employer] and clean a house with bleach due to mold and this was about 3 weeks ago. He has not been having productive cough or intractable coughing and no fever. No complains of fatigue or increasing weakness and does not take any prescription medications. 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 She lives with her daughter. Last time she smoked tobacco was 2 yrs ago with 50 pk yr. In the last week she has been having exertional chest pressure mainly mid chest and nonradiating. Also with short distances felt that she is SOA but no wheezing. Her discomfort typically last about 5 minutes and trigerred mostly by walking. Last night while at rest she did have an episode of chest pressure felt like someone is sitting on her chest lasting about 10 minutes. Overnight no further recurrence. Denies any past VTE, CAD, arrhythmias although at times she feels some skipping beats which she claimed she was told she has PVCs when she was checked but ischemic workup in the past. No associated symptoms of indigestion, n/v, no recent falls or injury and no recent pneumonia. Denies any HTN, HLP nor DM2. Denies any PUD or any reflux symptoms and no routine NSAID use. PAST MEDICAL HISTORY Cardiovascular: No pertinent hx Pulmonary: Other (No pertinent history) CENTRAL NERVOUS SYSTEM: Vertigo GI: No pertinent hx Heme/Onc: Cancer (uterine) Hepatobiliary: Cholelithiasis Psych: No pertinent hx Musculoskeletal: Osteoarthritis Rheumatologic: No pertinent hx Infectious disease: No pertinent hx ENT: No pertinent hx Renal/: No pertinent hx Endocrine: No pertinent hx Dermatology: No pertinent hx PAST SURGICAL HISTORY Past Surgical History: Cholecystectomy, Hysterectomy FAMILY HISTORY Family History: Coronary Artery Disease (father had bypass at 65) SOCIAL HISTORY Smoke: Quit (2 yrs ago) ALCOHOL: rare Drugs: None Lives: with Family (daughter) CURRENT MEDICATIONS CURRENT MEDICATIONS Current Medications Medications (Trade) Dose Ordered Sig/Mimi Route PRN Reason Start Time Stop Time Status Last Admin Dose Admin Aspirin (So Aspirin) 325 mg 1X ONCE PO 03/15/20 10:00 03/15/20 10:01 DC 03/15/20 10:18 Sodium Chloride 1,000 ml @ 1,000 mls/hr 1X ONCE IV 03/15/20 10:00 03/15/20 10:59 DC 03/15/20 10:18 Iohexol (Omnipaque 350 Mg/ml) 100 ml 1X ONCE IV 03/16/20 07:15 03/16/20 07:16 DC 03/16/20 07:40 ALLERGIES ALLERGIES: Coded Allergies: No Known Drug Allergies (Unverified , 03/15/20) ROS Review of System 14 point ROS evaluated with pertinent positives noted per HPI PHYSICAL EXAM General: Alert, Oriented X3, Cooperative, No acute distress HEENT: Atraumatic, Mucous membr. moist/pink Lungs: Clear to auscultation, Normal air movement Heart: Regular rate (SR), Normal S1, Normal S2, No murmurs Abdomen: Soft, No tenderness, Other (obese) Extremities: No cyanosis Skin: No significant lesion Neuro: Normal speech, Sensation intact Psych/Mental Status: Mental status NL, Mood NL MUSCULOSKELETAL: Osteoarthritic changes both hands VITALS/I&O VITALS/I&O: Vital Signs Date Time Temp Pulse Resp B/P (MAP) Pulse Ox O2 Delivery O2 Flow Rate FiO2 03/16/20 08:00 Room Air 03/16/20 07:00 98.0 73 16 131/80 (97) 96 98.0 I & O 03/15/20 03/15/20 03/16/20 15:00 23:00 07:00 Intake Total 200 ml 260 ml Balance 200 ml 260 ml LABS Lab: Laboratory Tests Test 03/15/20 09:17 03/15/20 09:59 03/15/20 10:55 03/15/20 13:50 White Blood Count 9.7 x10^3/uL (4.0-11.0) Red Blood Count 4.44 x10^6/uL (3.50-5.40) Hemoglobin 13.5 g/dL (12.0-15.5) Hematocrit 39.5 % (36.0-47.0) Mean Corpuscular Volume 89 fL (79-100) Mean Corpuscular Hemoglobin 30 pg (25-35) Mean Corpuscular Hemoglobin Concent 34 g/dL (31-37) Red Cell Distribution Width 13.3 % (11.5-14.5) Platelet Count 326 x10^3/uL (140-400) Neutrophils (%) (Auto) 62 % (31-73) Lymphocytes (%) (Auto) 28 % (24-48) Monocytes (%) (Auto) 8 % (0-9) Eosinophils (%) (Auto) 3 % (0-3) Basophils (%) (Auto) 1 % (0-3) Neutrophils # (Auto) 5.9 x10^3/uL (1.8-7.7) Lymphocytes # (Auto) 2.7 x10^3/uL (1.0-4.8) Monocytes # (Auto) 0.7 x10^3/uL (0.0-1.1) Eosinophils # (Auto) 0.2 x10^3/uL (0.0-0.7) Basophils # (Auto) 0.1 x10^3/uL (0.0-0.2) Sodium Level 142 mmol/L (136-145) Potassium Level 4.2 mmol/L (3.5-5.1) Chloride Level 103 mmol/L (98-107) Carbon Dioxide Level 30 mmol/L (21-32) Anion Gap 9 (6-14) Blood Urea Nitrogen 16 mg/dL (7-20) Creatinine 0.8 mg/dL (0.6-1.0) Estimated GFR (Cockcroft-Gault) 72.7 BUN/Creatinine Ratio 20 (6-20) Glucose Level 108 mg/dL (70-99) H Lactic Acid Level 1.0 mmol/L (0.4-2.0) Calcium Level 8.7 mg/dL (8.5-10.1) Magnesium Level 1.9 mg/dL (1.8-2.4) Total Bilirubin 0.4 mg/dL (0.2-1.0) Aspartate Amino Transferase (AST) 19 U/L (15-37) Alanine Aminotransferase (ALT) 28 U/L (14-59) Alkaline Phosphatase 73 U/L (46-116) Creatine Kinase 72 U/L (26-192) Creatine Kinase MB (Mass) 0.9 ng/mL (0.0-3.6) Creatine Kinase MB Relative Index % (0-4) Troponin I Quantitative < 0.017 ng/mL (0.000-0.055) < 0.017 ng/mL (0.000-0.055) RE-Zky-P-Type Natriuretic Peptide 109 pg/mL (0-124) Total Protein 7.2 g/dL (6.4-8.2) Albumin 3.6 g/dL (3.4-5.0) Albumin/Globulin Ratio 1.0 (1.0-1.7) Lipase 183 U/L (73-393) Prothrombin Time 12.2 SEC (11.7-14.0) Prothrombin Time INR 0.9 (0.8-1.1) Activated Partial Thromboplast Time 26 SEC (24-38) D-Dimer (Latisha) < 0.27 ug/mlFEU Urine Collection Type Unknown Urine Color Yellow Urine Clarity Clear Urine pH 6.0 (<5.0-8.0) Urine Specific [place] 1.010 (1.000-1.030) Urine Protein Negative mg/dL (NEG-TRACE) Urine Glucose (UA) Negative mg/dL (NEG) Urine Ketones (Stick) Negative mg/dL (NEG) Urine Blood Negative (NEG) Urine Nitrite Negative (NEG) Urine Bilirubin Negative (NEG) Urine Urobilinogen Dipstick 0.2 mg/dL (0.2 mg/dL) Urine Leukocyte Esterase Negative (NEG) Urine RBC 0 /HPF (0-2) Urine WBC Occ /HPF (0-4) Urine Squamous Epithelial Cells Few /LPF Urine Bacteria 0 /HPF (0-FEW) Test 03/15/20 17:30 03/16/20 03:00 Troponin I Quantitative < 0.017 ng/mL (0.000-0.055) Triglycerides Level 139 mg/dL (0-150) Cholesterol Level 239 mg/dL (0-200) H LDL Cholesterol, Calculated 154 mg/dL (0-100) H VLDL Cholesterol, Calculated 28 mg/dL (0-40) Non-HDL Cholesterol Calculated 182 mg/dL (0-129) H HDL Cholesterol 57 mg/dL (40-60) Cholesterol/HDL Ratio 4.2 Laboratory Tests 03/15/20 09:17 Laboratory Tests 03/15/20 09:17 ASSESSMENT/PLAN ASSESSMENT/PLAN 1. Chest pain with SOUZA: UA features, presently CP free. 2. Possible reactive airway dysfunction with suspected underlying COPD: recent mold exposure and significant bleach use 3 weeks ago 3. HLP 4. Morbid obesity 5. HTN urgency: much better controlled overnight 6. 50 pk yr tobaccoism: quit 2 yrs ago 7. Family hx of CAD Recommendations 1. No PE per CTA. Trops nml and no acute changes to her EKG. pulmonary issues does not explain her chest pressure concerning of unstable angina. Noted covid negative. Will obtain TTE and plan for [facility] tomorrow, risks and benefits disc ussed and agreeable to proceed. 2. ASA, start on statin. 3. Pulmonary consult. YAMILET SAGE MD 03/16/20 1156: CARDIAC CONSULT ASSESSMENT/PLAN ASSESSMENT/PLAN Pt. seen and examined. Agree with above TRANSPORTATION ATTENDANT note. Plan for [facility] tomorrow to definitely rule out CAD as cause of unstable angina. Thanks ROCK MAGALLON APRN Mar 16, 2020 08:32 YAMILET SAGE MD Mar 16, 2020 11:56
[2020-03-16] MEDS: ASPIRIN ENTERIC COATED 81 MG TABLET.DR. PO SCH (09:32)
--- NOTE | 2020-03-16 09:48 | NUR ---
Notified Dr. Garcia that COVID swab is negative, no orders to re-test patient at this time.
--- NOTE | 2020-03-16 10:20 | PDOC ---
PULMONARY PROGRESS NOTES Subjective less chest pain Vitals Vital Signs Date Time Temp Pulse Resp B/P (MAP) Pulse Ox O2 Delivery O2 Flow Rate FiO2 03/16/20 08:00 Room Air 03/16/20 07:00 98.0 73 16 131/80 (97) 96 98.0 General: Alert, No acute distress Lungs: Clear Cardiovascular: S1 Abdomen: Soft Neuro Exam: Alert Extremities: No Edema Skin: Warm Labs Laboratory Tests Test 03/15/20 09:17 03/15/20 09:59 03/15/20 10:55 03/15/20 13:50 White Blood Count 9.7 x10^3/uL (4.0-11.0) Red Blood Count 4.44 x10^6/uL (3.50-5.40) Hemoglobin 13.5 g/dL (12.0-15.5) Hematocrit 39.5 % (36.0-47.0) Mean Corpuscular Volume 89 fL (79-100) Mean Corpuscular Hemoglobin 30 pg (25-35) Mean Corpuscular Hemoglobin Concent 34 g/dL (31-37) Red Cell Distribution Width 13.3 % (11.5-14.5) Platelet Count 326 x10^3/uL (140-400) Neutrophils (%) (Auto) 62 % (31-73) Lymphocytes (%) (Auto) 28 % (24-48) Monocytes (%) (Auto) 8 % (0-9) Eosinophils (%) (Auto) 3 % (0-3) Basophils (%) (Auto) 1 % (0-3) Neutrophils # (Auto) 5.9 x10^3/uL (1.8-7.7) Lymphocytes # (Auto) 2.7 x10^3/uL (1.0-4.8) Monocytes # (Auto) 0.7 x10^3/uL (0.0-1.1) Eosinophils # (Auto) 0.2 x10^3/uL (0.0-0.7) Basophils # (Auto) 0.1 x10^3/uL (0.0-0.2) Sodium Level 142 mmol/L (136-145) Potassium Level 4.2 mmol/L (3.5-5.1) Chloride Level 103 mmol/L (98-107) Carbon Dioxide Level 30 mmol/L (21-32) Anion Gap 9 (6-14) Blood Urea Nitrogen 16 mg/dL (7-20) Creatinine 0.8 mg/dL (0.6-1.0) Estimated GFR (Cockcroft-Gault) 72.7 BUN/Creatinine Ratio 20 (6-20) Glucose Level 108 mg/dL (70-99) Lactic Acid Level 1.0 mmol/L (0.4-2.0) Calcium Level 8.7 mg/dL (8.5-10.1) Magnesium Level 1.9 mg/dL (1.8-2.4) Total Bilirubin 0.4 mg/dL (0.2-1.0) Aspartate Amino Transf (AST/SGOT) 19 U/L (15-37) Alanine Aminotransferase (ALT/SGPT) 28 U/L (14-59) Alkaline Phosphatase 73 U/L (46-116) Creatine Kinase 72 U/L (26-192) Creatine Kinase MB (Mass) 0.9 ng/mL (0.0-3.6) Creatine Kinase MB Relative Index % (0-4) Troponin I Quantitative < 0.017 ng/mL (0.000-0.055) < 0.017 ng/mL (0.000-0.055) JF-Cvy-H-Type Natriuretic Peptide 109 pg/mL (0-124) Total Protein 7.2 g/dL (6.4-8.2) Albumin 3.6 g/dL (3.4-5.0) Albumin/Globulin Ratio 1.0 (1.0-1.7) Lipase 183 U/L (73-393) Prothrombin Time 12.2 SEC (11.7-14.0) Prothromb Time International Ratio 0.9 (0.8-1.1) Activated Partial Thromboplast Time 26 SEC (24-38) D-Dimer (Latisha) < 0.27 ug/mlFEU Urine Collection Type Unknown Urine Color Yellow Urine Clarity Clear Urine pH 6.0 (<5.0-8.0) Urine Specific [place] 1.010 (1.000-1.030) Urine Protein Negative mg/dL (NEG-TRACE) Urine Glucose (UA) Negative mg/dL (NEG) Urine Ketones (Stick) Negative mg/dL (NEG) Urine Blood Negative (NEG) Urine Nitrite Negative (NEG) Urine Bilirubin Negative (NEG) Urine Urobilinogen Dipstick 0.2 mg/dL (0.2 mg/dL) Urine Leukocyte Esterase Negative (NEG) Urine RBC 0 /HPF (0-2) Urine WBC Occ /HPF (0-4) Urine Squamous Epithelial Cells Few /LPF Urine Bacteria 0 /HPF (0-FEW) Coronavirus (COVID-19)(PCR) Not detected (NOT DETECT.) Test 03/15/20 17:30 03/16/20 03:00 Troponin I Quantitative < 0.017 ng/mL (0.000-0.055) Triglycerides Level 139 mg/dL (0-150) Cholesterol Level 239 mg/dL (0-200) LDL Cholesterol, Calculated 154 mg/dL (0-100) VLDL Cholesterol, Calculated 28 mg/dL (0-40) Non-HDL Cholesterol Calculated 182 mg/dL (0-129) HDL Cholesterol 57 mg/dL (40-60) Cholesterol/HDL Ratio 4.2 Laboratory Tests Test 03/15/20 10:55 03/15/20 13:50 03/15/20 17:30 03/16/20 03:00 Urine Collection Type Unknown Urine Color Yellow Urine Clarity Clear Urine pH 6.0 (<5.0-8.0) Urine Specific [place] 1.010 (1.000-1.030) Urine Protein Negative mg/dL (NEG-TRACE) Urine Glucose (UA) Negative mg/dL (NEG) Urine Ketones (Stick) Negative mg/dL (NEG) Urine Blood Negative (NEG) Urine Nitrite Negative (NEG) Urine Bilirubin Negative (NEG) Urine Urobilinogen Dipstick 0.2 mg/dL (0.2 mg/dL) Urine Leukocyte Esterase Negative (NEG) Urine RBC 0 /HPF (0-2) Urine WBC Occ /HPF (0-4) Urine Squamous Epithelial Cells Few /LPF Urine Bacteria 0 /HPF (0-FEW) Coronavirus (COVID-19)(PCR) Not detected (NOT DETECT.) Troponin I Quantitative < 0.017 ng/mL (0.000-0.055) < 0.017 ng/mL (0.000-0.055) Triglycerides Level 139 mg/dL (0-150) Cholesterol Level 239 mg/dL (0-200) LDL Cholesterol, Calculated 154 mg/dL (0-100) VLDL Cholesterol, Calculated 28 mg/dL (0-40) Non-HDL Cholesterol Calculated 182 mg/dL (0-129) HDL Cholesterol 57 mg/dL (40-60) Cholesterol/HDL Ratio 4.2 Medications Active Scripts Medications Dose Route/Sig Max Daily Dose Days Date Category Ultram (Tramadol Hcl) 50 Mg Tablet 50 Mg PO Q6HRS PRN 02/07/19 Rx Impression . 1. Chest tightness for the last 2 weeks along with some intermittent dyspnea. A chest x-ray is clear. No fever. No chills. The differential diagnosis would include anginal pain. The possibility of thromboembolic disease seems less likely in the setting of normal D-dimer, CTA chest neg for PE 2. 25+ years of tobacco, underlying suspected chronic obstructive pulmonary disease. 3. Less clinical suspicion for COVID-19. 4. Morbid obesity and clinical suspicion for obstructive sleep apnea. Plan . 1. Discussed with the patient and the daughter. We will use p.r.n. oxygen. 2. CTA chest with no PE. mild bronchiolitis.mild right hilar adenopathy, likely reactive. add Doxy. repeat ct in 3 months 3. Cardiology rec. cath in am 4. Weight loss is advised. 5. Sleep study as an outpatient. 6. Discussed with RN./ PFT as JESSICA YANG MD Mar 16, 2020 10:20
[2020-03-16 11:40] VITALS: BP 121/56
--- NOTE | 2020-03-16 11:51 | PDOC ---
[employer] PROGRESS NOTE Chief Complaint Chief Complaint Chest pain Shortness of breath Hypoxia Hysterectomy, cholecystectomy, uterine cancer, tubal ligation, previous tobacco abuse, she quit 2 years ago. History of Present Illness History of Present Illness 03/16/2020 Patient seen and examined Her COVID-19 test is negative Her CAT scan does not show any pulmonary emboli Chart reviewed Discussed with RN She is scheduled for cardiac cath in a.m. Vitals/I&O Vitals/I&O: Vital Signs Date Time Temp Pulse Resp B/P (MAP) Pulse Ox O2 Delivery O2 Flow Rate FiO2 03/16/20 11:40 97.8 68 16 121/56 (77) 93 Room Air 97.8 I & O 03/15/20 03/15/20 03/16/20 15:00 23:00 07:00 Intake Total 200 ml 260 ml Balance 200 ml 260 ml Physical Exam General: Alert, Oriented X3, Cooperative, No acute distress Heart: Regular rate (SR), Normal S1, Normal S2, No murmurs Lungs: Clear Abdomen: Soft, No tenderness, Other (obese) Extremities: No cyanosis Skin: No significant lesion Labs Labs: Laboratory Tests Test 03/15/20 13:50 03/15/20 17:30 03/16/20 03:00 Troponin I Quantitative < 0.017 ng/mL (0.000-0.055) < 0.017 ng/mL (0.000-0.055) Triglycerides Level 139 mg/dL (0-150) Cholesterol Level 239 mg/dL (0-200) LDL Cholesterol, Calculated 154 mg/dL (0-100) VLDL Cholesterol, Calculated 28 mg/dL (0-40) Non-HDL Cholesterol Calculated 182 mg/dL (0-129) HDL Cholesterol 57 mg/dL (40-60) Cholesterol/HDL Ratio 4.2 Assessment and Plan Assessmemt and Plan Problems Medical Problems: (1) Chest pain Status: Acute (2) Dyspnea on exertion Status: Acute (3) Suspected 2019 novel coronavirus infection Status: Acute Chest pain Bronchitis and reactive lymphadenopathy on imaging Shortness of breath Hypoxia Hysterectomy, cholecystectomy, uterine cancer, tubal ligation, previous tobacco abuse, she quit 2 years ago. Plan Cardiac cath in a.m. For now continue doxy O2 per nasal cannula PRN nebs Home meds DVT prophylaxis Full code Appreciate subspecialist input Comment Review of Relevant I have reviewed the following items corinne (where applicable) has been applied. Medications: Current Medications Medications (Trade) Dose Ordered Sig/Mimi Route PRN Reason Start Time Stop Time Status Last Admin Dose Admin Iohexol (Omnipaque 350 Mg/ml) 100 ml 1X ONCE IV 03/16/20 07:15 03/16/20 07:16 DC 03/16/20 07:40 Aspirin (Ecotrin) 81 mg [id number] PO 03/16/20 10:00 03/16/20 09:32 Justicifation of Admission Dx: Justifications for Admission: Justification of Admission Dx: Yes Respiratory Failure: Severe Resp Distress Angina: New-Onset YULI MACIEL III DO Mar 16, 2020 11:51
[2020-03-16] MEDS: DOXYCYCLINE HYCLATE 100 MG TABLET PO SCH ×2 (12:18→21:24)
--- NOTE | 2020-03-16 12:25 | CARD ---
MR#: [id number] Date of Study: 03/16/2020 Ordering Physician: ROCK MAGALLON, Referring Physician: ROCK MAGALLON Tech: Isela Flores [facility] APPROVED REPORT EXAM: Two-dimensional and M-mode echocardiogram with Doppler and color Doppler. Other Information Quality : Good INDICATION Chest Pain 2D DIMENSIONS RVDd2.7 (2.9-3.5cm)Left Atrium(2D)3.3 (1.6-4.0cm) IVSd1.0 (0.7-1.1cm)Aortic Root(2D)2.8 (2.0-3.7cm) LVDd4.3 (3.9-5.9cm)LVOT Diameter2.3 (1.8-2.4cm) PWd1.0 (0.7-1.1cm)LVDs2.7 (2.5-4.0cm) FS (%) 39.0 %SV59.2 ml LVEF(%)60.0 (>50%) Aortic Valve AoV Peak James.137.2cm/sAoV VTI28.0cm AO Peak GR.7.5mmHgLVOT Peak James.106.1cm/s AO Mean GR.4mmHgAVA (VMAX)3.23cm2 STEPH (VTI)3.40cm2 Mitral Valve MV E Hggyuhoe49.6cm/sMV DECEL DJDF200xy MV A Ngcldhuj614.5cm/sE/A Ratio0.8 Tricuspid Valve TR P. Ildzridy767oq/sRAP KUTCDZNM0tqDd TR Peak Gr.35arMtVSOY69zxTz Pulmonary Vein S1 Ahmkfyql87.9cm/sD2 Ugzbgeyv62.3cm/s LEFT VENTRICLE The left ventricle is normal size. There is normal left ventricular wall thickness. The left ventricu lar systolic function is normal and the ejection fraction is within normal range. The Ejection Fracti on is 55-60%. Transmitral Doppler flow pattern is Grade I-abnormal relaxation pattern. RIGHT VENTRICLE The right ventricle is normal size. The right ventricular systolic function is normal. ATRIA The left atrium size is normal. The right atrium size is normal. The interatrial septum is intact wit h no evidence for an atrial septal defect or patent foramen ovale as noted on 2-D or Doppler imaging. AORTIC VALVE The aortic valve is calcified but opens well. Doppler and Color Flow revealed no significant aortic r egurgitation. There is no significant aortic valvular stenosis. MITRAL VALVE The mitral valve is normal in structure and function. There is no evidence of mitral valve prolapse. There is no mitral valve stenosis. Doppler and Color-flow revealed trace to mild mitral regurgitation . TRICUSPID VALVE The tricuspid valve is normal in structure and function. Doppler and Color Flow revealed trace tricus pid regurgitation. The PA pressure was estimated at 35 mmHg. There is no tricuspid valve stenosis. PULMONIC VALVE The pulmonic valve is not well visualized. Doppler and Color Flow revealed no pulmonic valvular regur gitation. There is no pulmonic valvular stenosis. GREAT VESSELS The aortic root is normal in size. The ascending aorta is normal in size. The IVC is normal in size a nd collapses >50% with inspiration. PERICARDIAL EFFUSION There is no evidence of significant pericardial effusion. Critical Notification Critical Value: No <Conclusion> The left ventricle is normal size. The left ventricular systolic function is normal and the ejection fraction is within normal range. The Ejection Fraction is 55-60%. Doppler and Color Flow revealed no significant aortic regurgitation. There is no significant aortic valvular stenosis. Doppler and Color-flow revealed trace to mild mitral regurgitation. Doppler and Color Flow revealed trace tricuspid regurgitation. The PA pressure was estimated at 35 mmHg. Signed by : Juan Alberto Laird MD Electronically Approved : 03/16/2020 12:25:25
[2020-03-16 15:19] VITALS: BP 113/56
--- NOTE | 2020-03-16 16:55 | NUR ---
SW following for discharge planning. Reviewed chart and spoke with RN. Pt lives in [place] with her dtr and states no concerns about returning home at discharge. Pt went for echo today, 03/16/2020. Pt COVID negative. Pt would like to discharge tomorrow, 03/17/2020. Pt on room air and oral medications. SW to continue following.
[2020-03-16 19:49] VITALS: BP 111/41
[2020-03-16] MEDS: LACTOBACILLUS RHAMNOSUS GG 1 CAPSULE. PO SCH (21:24)
[2020-03-16] MEDS: ATORVASTATIN CALCIUM 40 MG TABLET. PO SCH (21:24)
[2020-03-16 23:15] VITALS: BP 122/41
[2020-03-17] VITALS (23 sets, daily range): BP systolic 93–142; BP diastolic 59–79
[2020-03-17] MEDS ORDERED: IODIXANOL 320 MG/ML 100 ML VIAL. ONE (07:43)
[2020-03-17] MEDS ORDERED: HEPARIN for ARTERIAL LINE 1,500 ML ONE (07:43)
[2020-03-17] MEDS ORDERED: LIDOCAINE 1% PF 2 ML VIAL. ONE (07:43)
[2020-03-17] MEDS: DOXYCYCLINE HYCLATE 100 MG TABLET PO SCH ×2 (08:34→21:39)
[2020-03-17] MEDS ORDERED: HEPARIN for IV BOLUS 10,000 UNIT/10 ML VIAL. ONE (10:34)
[2020-03-17] MEDS ORDERED: fentaNYL PF VIAL 100 MCG/2 ML VIAL ONE (10:34)
[2020-03-17] MEDS ORDERED: MIDAZOLAM HCL/PF 2 MG/2 ML VIAL. ONE (10:34)
[2020-03-17] MEDS ORDERED: NITROGLYCERIN 200 MCG/2 ML SYRINGE FOR CATH/VASC LAB. ONE (10:35)
[2020-03-17] MEDS ORDERED: VERAPAMIL 5 MG/2 ML VIAL. ONE (10:35)
--- NOTE | 2020-03-17 10:44 | PDOC ---
PULMONARY PROGRESS NOTES Subjective less chest pain Vitals Vital Signs Date Time Temp Pulse Resp B/P (MAP) Pulse Ox O2 Delivery O2 Flow Rate FiO2 03/17/20 08:00 Room Air 03/17/20 07:24 98.2 65 18 124/61 (82) 99 98.2 General: Alert, No acute distress Lungs: Clear Cardiovascular: S1 Abdomen: Soft Neuro Exam: Alert Extremities: No Edema Skin: Warm Labs Laboratory Tests Test 03/15/20 10:55 03/15/20 13:50 03/15/20 17:30 03/16/20 03:00 Urine Collection Type Unknown Urine Color Yellow Urine Clarity Clear Urine pH 6.0 (<5.0-8.0) Urine Specific Lancing 1.010 (1.000-1.030) Urine Protein Negative mg/dL (NEG-TRACE) Urine Glucose (UA) Negative mg/dL (NEG) Urine Ketones (Stick) Negative mg/dL (NEG) Urine Blood Negative (NEG) Urine Nitrite Negative (NEG) Urine Bilirubin Negative (NEG) Urine Urobilinogen Dipstick 0.2 mg/dL (0.2 mg/dL) Urine Leukocyte Esterase Negative (NEG) Urine RBC 0 /HPF (0-2) Urine WBC Occ /HPF (0-4) Urine Squamous Epithelial Cells Few /LPF Urine Bacteria 0 /HPF (0-FEW) Coronavirus (COVID-19)(PCR) Not detected (NOT DETECT.) Troponin I Quantitative < 0.017 ng/mL (0.000-0.055) < 0.017 ng/mL (0.000-0.055) Triglycerides Level 139 mg/dL (0-150) Cholesterol Level 239 mg/dL (0-200) LDL Cholesterol, Calculated 154 mg/dL (0-100) VLDL Cholesterol, Calculated 28 mg/dL (0-40) Non-HDL Cholesterol Calculated 182 mg/dL (0-129) HDL Cholesterol 57 mg/dL (40-60) Cholesterol/HDL Ratio 4.2 Medications Active Scripts Medications Dose Route/Sig Max Daily Dose Days Date Category Ultram (Tramadol Hcl) 50 Mg Tablet 50 Mg PO Q6HRS PRN 02/07/19 Rx Impression . 1. Chest tightness for the last 2 weeks along with some intermittent dyspnea. A chest x-ray is clear. No fever. No chills. The differential diagnosis would include anginal pain. The possibility of thromboembolic disease seems less likely in the setting of normal D-dimer, CTA chest neg for PE 2. 25+ years of tobacco, underlying suspected chronic obstructive pulmonary disease. 3. Less clinical suspicion for COVID-19. 4. Morbid obesity and clinical suspicion for obstructive sleep apnea. Plan . 1. Discussed with the patient and the daughter. We will use p.r.n. oxygen. 2. CTA chest with no PE. mild bronchiolitis.mild right hilar adenopathy, likely reactive. add Doxy. repeat ct in 3 months 3. Cardiology rec. cath today 4. Weight loss is advised. 5. Sleep study as an outpatient. 6. Discussed with RN./ PFT as OP JESSICA RIVERS MD Mar 17, 2020 10:44
--- NOTE | 2020-03-17 11:02 | PDOC ---
[facility] PROGRESS NOTE Chief Complaint Chief Complaint Chest pain Shortness of breath Hypoxia Hysterectomy, cholecystectomy, uterine cancer, tubal ligation, previous tobacco abuse, she quit 2 years ago. History of Present Illness History of Present Illness 03/17/2020 Patient seen and examined She is doing well but awaiting cardiac cath this afternoon Chart reviewed Discussed with her 03/16/2020 Patient seen and examined Her COVID-19 test is negative Her CAT scan does not show any pulmonary emboli Chart reviewed Discussed with RN She is scheduled for cardiac cath in a.m. Vitals/I&O Vitals/I&O: Vital Signs Date Time Temp Pulse Resp B/P (MAP) Pulse Ox O2 Delivery O2 Flow Rate FiO2 03/17/20 08:00 Room Air 03/17/20 07:24 98.2 65 18 124/61 (82) 99 98.2 I & O 03/16/20 03/16/20 03/17/20 15:00 23:00 07:00 Intake Total 300 ml 200 ml 400 ml Balance 300 ml 200 ml 400 ml Physical Exam General: Alert, Oriented X3, Cooperative, No acute distress Heart: Regular rate (SR), Normal S1, Normal S2, No murmurs Lungs: Clear Abdomen: Soft, No tenderness, Other (obese) Extremities: No cyanosis Skin: No significant lesion Assessment and Plan Assessmemt and Plan Problems Medical Problems: (1) Chest pain Status: Acute (2) Dyspnea on exertion Status: Acute (3) Suspected 2019 novel coronavirus infection Status: Acute Chest pain Bronchitis and reactive lymphadenopathy on imaging Shortness of breath Hypoxia Hysterectomy, cholecystectomy, uterine cancer, tubal ligation, previous tobacco abuse, she quit 2 years ago. Plan Cardiac cath later today For now continue doxy O2 per nasal cannula PRN nebs Home meds DVT prophylaxis Full code Appreciate subspecialist input Comment Review of Relevant I have reviewed the following items corinne (where applicable) has been applied. Medications: Current Medications Medications (Trade) Dose Ordered Sig/Mimi Route PRN Reason Start Time Stop Time Status Last Admin Dose Admin Atorvastatin Calcium (Lipitor) 40 mg QHS PO 03/16/20 21:00 03/16/20 21:24 Lactobacillus Rhamnosus (Culturelle) 1 cap BID PO 03/16/20 21:00 03/16/20 21:24 Justicifation of Admission Dx: Justifications for Admission: Justification of Admission Dx: Yes Respiratory Failure: Severe Resp Distress Angina: New-Onset YULI MACIEL III DO Mar 17, 2020 11:02
[2020-03-17] MEDS ORDERED: VERAPAMIL 5 MG/2 ML VIAL. IART ONE (11:15)
[2020-03-17] MEDS ORDERED: fentaNYL PF VIAL 100 MCG/2 ML VIAL IV ONE (11:15)
[2020-03-17] MEDS ORDERED: NITROGLYCERIN 200 MCG/2 ML SYRINGE FOR CATH/VASC LAB. IART ONE (11:15)
[2020-03-17] MEDS ORDERED: LIDOCAINE 1% PF 2 ML VIAL. INJ ONE (11:15)
[2020-03-17] MEDS ORDERED: MIDAZOLAM HCL/PF 2 MG/2 ML VIAL. IV ONE (11:15)
[2020-03-17] MEDS ORDERED: HEPARIN for IV BOLUS 10,000 UNIT/10 ML VIAL. IART ONE (11:15)
[2020-03-17] MEDS ORDERED: IODIXANOL 320 MG/ML 100 ML VIAL. IART ONE (11:15)
--- NOTE | 2020-03-17 12:08 | NUR ---
SW following. Discussed with RN, pt from home with daughter, room air. Pt in mason tender restoration labor today - likely will transfer to ICU after procedure. SW will continue to follow for any discharge planning needs.
--- NOTE | 2020-03-17 12:29 | CARD ---
MR#: [id number] Date of Study: 03/17/2020 Ordering Physician: ROCK MAGALLON, Referring Physician: ROCK MAGALLON, Tech: Janeen Coleman APPROVED REPORT Technologist: Janeen Coleman Nurse: Kaleigh Shelley R.N. Procedure(s) performed: fl time: 3.6 mins dose: 52 gycm2 contrast: 28 ml moderate sedation: 29 mins C, Coronary angiography HISTORY The patient is a 64 year-old female with a history of : hypertension, dyslipidemia. INDICATION The indication(s) include : unstable angina . CSHA Clinical Frailty Scale [facility] Clinical Frailty Scale: Mildly Frail Heart Failure Heart Failure: Yes If Yes, Newly Diagnosed: No If Yes, HF Type: Diastolic If Yes, NYHA Class: Class II PROCEDURE NARRATIVE INFORMED CONSENT: After explaining the risks and benefits of the procedure and alternatives, informed consent was obtained. The patient was brought electively to the cardiac catheterization lab. A timeout was performed confi rming the patient's name, date of , procedure, and site of procedure. All necessary personnel w ere wearing the appropriate protective equipment and radiation monitor devices. (See nursing notes for medications administered). ACCESS: The right wrist was sterilely prepped and draped in the usual fashion. The right wrist was infiltrat ed with 1 mL of 2% lidocaine for subcutaneous anesthesia. A 6 Estonian Terumo glide sheath was inserte d into the right radial artery without difficulty. CORONARY ANGIOGRAPHY: Right and left coronary angiography was performed using a 6Fr TIG 4.0 catheter. Left ventricular en d diastolic pressure was obtained with a TIG catheter. All catheter exchanges and advancements were performed over a guidewire. CLOSURE: At case completion the right radial sheath was removed and a Terumo radial band was applied with 13 m l of air. COMPLICATIONS: The patient tolerated the procedure well and there were no immediate complications. FINDINGS: HEMODYNAMICS: LVEDP 18 mm Hg No gradient on LV to aortic pullback. AO: 128/78 LEFT VENTRICULOGRAM: Deferred due to known normal EF by echo. CORONARY ANGIOGRAPHY: LM is a large caliber vessel with normal angiographic appearance. LAD is a large caliber vessel with normal angiographic appearance. LCx is a moderate caliber non-dominant vessel with proximal 20% stenosis. OM1 is a moderate caliber vessel with normal angiographic appearance. RCA is a large caliber dominant vessel with normal angiographic appearance. RPDA and RPL are moderate caliber vessels with normal angiographic appearance. *Overall flow suggestive of endothelial dysfunction. Conclusion 1. Mild acute on chronic diastolic HF. 2. No significant coronary disease. Recommendations Aggressive Medical Therapy Signed by : Timmy Ramirez, Electronically Approved : 03/17/2020 12:29:38
--- NOTE | 2020-03-17 14:32 | NUR ---
Received report from Galina in laborer/key man, Right radial, clean cath. Frequent PVCs. 35 fentanyl given, 2 versed. BM and urination reported in recovery. Pt back on unit
--- NOTE | 2020-03-17 14:39 | NUR ---
Patient had heart cath with right radial access, no fix, no blockage found. Recovered in CV OBS, radial band off and dressing in place. Dressing clean dry intact with no complications. Vitals stable, report called to ROBERTA Alvarado on . Patient transferred back to [facility].
[2020-03-17] MEDS: ASPIRIN ENTERIC COATED 81 MG TABLET.DR. PO SCH (15:42)
[2020-03-17] MEDS: LACTOBACILLUS RHAMNOSUS GG 1 CAPSULE. PO SCH ×2 (15:42→21:39)
[2020-03-17] MEDS: ATORVASTATIN CALCIUM 40 MG TABLET. PO SCH (21:39)
[2020-03-18 03:02] VITALS: BP 110/49
[2020-03-18 07:29] VITALS: BP 135/59
--- NOTE | 2020-03-18 09:48 | PDOC ---
PULMONARY PROGRESS NOTES Subjective less chest pain Vitals Vital Signs Date Time Temp Pulse Resp B/P (MAP) Pulse Ox O2 Delivery O2 Flow Rate FiO2 03/18/20 07:29 97.5 63 16 135/59 (84) 92 Room Air 97.5 03/17/20 11:30 2.0 General: Alert, No acute distress Lungs: Clear Cardiovascular: S1 Abdomen: Soft Neuro Exam: Alert Extremities: No Edema Skin: Warm Medications Active Scripts Medications Dose Route/Sig Max Daily Dose Days Date Category Ultram (Tramadol Hcl) 50 Mg Tablet 50 Mg PO Q6HRS PRN 02/07/19 Rx Impression . 1. Chest tightness for the last 2 weeks along with some intermittent dyspnea. A chest x-ray is clear. No fever. No chills. The differential diagnosis would include anginal pain. The possibility of thromboembolic disease seems less likely in the setting of normal D-dimer, CTA chest neg for PE 2. 25+ years of tobacco, underlying suspected chronic obstructive pulmonary disease. 3. Less clinical suspicion for COVID-19. 4. Morbid obesity and clinical suspicion for obstructive sleep apnea. Plan . 1. Discussed with the patient and the daughter. We will use p.r.n. oxygen. 2. CTA chest with no PE. mild bronchiolitis.mild right hilar adenopathy, likely reactive. add Doxy. repeat ct in 3 months 3. Cardiology rec. cath neg for sig CAD 4. Weight loss is advised. 5. Sleep study as an outpatient. 6. Discussed with RN./ PFT as OP/ ct ches tin 3 months JESSICA RIVERS MD Mar 18, 2020 09:48
--- NOTE | 2020-03-18 09:53 | NUR ---
SW following. Coordinated care with RN and Dr. Bird and pt is ready for discharge today, 03/18/2020. Pt to return home with dtr. Pt on room air. Pt on oral medications. No further SW needs at this time.
[2020-03-18] MEDS: ASPIRIN ENTERIC COATED 81 MG TABLET.DR. PO SCH (09:58)
[2020-03-18] MEDS: DOXYCYCLINE HYCLATE 100 MG TABLET PO SCH (09:58)
[2020-03-18] MEDS: LACTOBACILLUS RHAMNOSUS GG 1 CAPSULE. PO SCH (09:58)
[2020-03-18 10:56] VITALS: BP 126/67
--- NOTE | 2020-03-18 11:07 | PDOC ---
[facility] PROGRESS NOTE Chief Complaint Chief Complaint Chest pain Shortness of breath Hypoxia Hysterectomy, cholecystectomy, uterine cancer, tubal ligation, previous tobacco abuse, she quit 2 years ago. History of Present Illness History of Present Illness 03/18/2020 Patient at baseline Cath was clean Plans discharge home 03/17/2020 Patient seen and examined She is doing well but awaiting cardiac cath this afternoon Chart reviewed Discussed with her 03/16/2020 Patient seen and examined Her COVID-19 test is negative Her CAT scan does not show any pulmonary emboli Chart reviewed Discussed with RN She is scheduled for cardiac cath in a.m. Vitals/I&O Vitals/I&O: Vital Signs Date Time Temp Pulse Resp B/P (MAP) Pulse Ox O2 Delivery O2 Flow Rate FiO2 03/18/20 10:56 98.4 61 17 126/67 (86) 96 Room Air 98.4 03/17/20 11:30 2.0 I & O 03/17/20 03/17/20 03/18/20 15:00 23:00 07:00 Intake Total 400 ml Balance 400 ml Physical Exam General: Alert, Oriented X3, Cooperative, No acute distress Heart: Regular rate (SR), Normal S1, Normal S2, No murmurs Lungs: Clear Abdomen: Soft, No tenderness, Other (obese) Extremities: No cyanosis Skin: No significant lesion Assessment and Plan Assessmemt and Plan Problems Medical Problems: (1) Chest pain Status: Acute (2) Dyspnea on exertion Status: Acute (3) Suspected 2019 novel coronavirus infection Status: Acut Discharge home Comment Review of Relevant I have reviewed the following items corinne (where applicable) has been applied. Medications: Current Medications Medications (Trade) Dose Ordered Sig/Mimi Route PRN Reason Start Time Stop Time Status Last Admin Dose Admin Nitroglycerin (Nitroglycerin) 200 mcg 1X ONCE IART 03/17/20 11:15 03/17/20 11:20 DC 03/17/20 11:25 Verapamil HCl (Verapamil) 2.5 mg 1X ONCE IART 03/17/20 11:15 03/17/20 11:20 DC 03/17/20 11:27 Heparin Sodium (Porcine) (Heparin Sodium) 2,500 unit 1X ONCE IART 03/17/20 11:15 03/17/20 11:20 DC 03/17/20 11:25 Heparin Sodium/ Sodium Chloride (HEPARIN for ARTERIAL LINE FLUSH) 1,000 unit 1X ONCE IART 03/17/20 11:15 03/17/20 11:20 DC 03/17/20 11:23 Midazolam HCl (Versed) 2 mg 1X ONCE IV 03/17/20 11:15 03/17/20 11:20 DC 03/17/20 11:26 Fentanyl Citrate (Fentanyl 2ml Vial) 75 mcg 1X ONCE IV 03/17/20 11:15 03/17/20 11:20 DC 03/17/20 11:26 Iodixanol (Visipaque 320) 28 ml 1X ONCE IART 03/17/20 11:15 03/17/20 11:20 DC 03/17/20 11:25 Lidocaine HCl (Xylocaine-Mpf 1% 2ml Vial) 1 ml 1X ONCE INJ 03/17/20 11:15 03/17/20 11:20 DC 03/17/20 11:25 Justicifation of Admission Dx: Justifications for Admission: Justification of Admission Dx: Yes Respiratory Failure: Severe Resp Distress Angina: New-Onset YULI MACIEL III DO Mar 18, 2020 11:07
[2020-03-18] MEDS ORDERED: ATOR40TA59 PO (11:08)
--- NOTE | 2020-03-18 11:09 | PDOC ---
CARDIO Progress Notes Date and Time Date of Service 03/18/2020 Time of Evaluation 1050 Subjective Subjective: No Chest Pain, No shortness of breath, No Palpitations Vitals Vitals Vital Signs Date Time Temp Pulse Resp B/P (MAP) Pulse Ox O2 Delivery O2 Flow Rate FiO2 03/18/20 07:29 97.5 63 16 135/59 (84) 92 Room Air 97.5 03/17/20 11:30 2.0 Weight Weight [ ] Input and Output Intake and Output Intake and Output 03/18/20 07:00 Intake Total 400 ml Balance 400 ml Intake Oral 400 ml # Voids 5 # Bowel Movements 3 Physical Exam HEENT: Neck Supple W Full Motion Chest: Symmetric LUNGS: Clear to Auscultation Heart: S1S2, RRR (SR) Abdomen: Soft N/T Extremities: No Edema, No Calf Tenderness Neurology: alert, oriented, follow commands Other Exams right wrist arteriotomy site intact, no erythema, swelling, neurovascular status to right hand intact. Assessment Assessment 1. Chest pain with SOUZA: No significant CAD, symptoms possibly related to reactive airway 2. Reactive airway dysfunction with suspected underlying COPD: recent mold exp osure and significant bleach use 3 weeks ago 3. HLP 4. Morbid obesity 5. HTN urgency: controlled, no med 6. 50 pk yr tobaccoism: quit 2 yrs ago 7. CAD; mild lesion to LCx otherwise no significant CAD Recommendations 1. Follow pulmonary recommendation 2. ASA, statin to continue 3. HBPM, may need ROBERT outpt w/u. F/U lipids in 8 wks via her PCP 4. May follow up in office PRN. 5. Discussed exercise regimen and wt loss. Justicifation of Admission Dx: Justifications for Admission: Justification of Admission Dx: Yes Respiratory Failure: Severe Resp Distress Angina: New-Onset ROCK MAGALLON CAR SEALER Mar 18, 2020 11:09
--- NOTE | 2020-03-18 12:56 | DS ---
DATE OF DISCHARGE: 03/18/2020 ADMISSION DIAGNOSES: Shortness of breath and chest pain. DISCHARGE DIAGNOSES: 1. Resolving atypical chest pain (she had a cardiac catheterization, which was clean). 2. Resolving shortness of breath with probable borderline chronic obstructive pulmonary disease (she smoked for 25 years). 3. Obesity. CONSULTS: Pulmonary Medicine and Cardiology. PROCEDURES: Cardiac catheterization. HOSPITAL COURSE: The patient is a pleasant middle-aged female who presented with shortness of breath and chest pain. She was admitted. We ruled her out for COVID-19. We consulted Pulmonary Medicine and gave her breathing treatments and oxygen and she went for cardiac catheterization yesterday, it was clean. Overall, she looked great. We plan to discharge home. DISPOSITION: Home. ACTIVITY: As tolerated. DIET: Low sodium. MEDICATIONS: Please see MRAD. TOTAL TIME: 33 minutes. YULI MACIEL DO DR: MELVIN/krista JOB#: [id number] / [id number]
[2020-03-18] MEDS ORDERED: ATORVASTATIN CALCIUM 40 MG TABLET. PO SCH (21:00)
== END 2020-03-18 14:55 | disposition home or self-care (01) | DRG 286 ==
LOC: ER 09:35 → OBSVTOIN 10:45 → 6 SOUTH 10:45 → 1 WEST ICU 03-17 08:43 → 6 SOUTH 03-17 08:58
PROVIDERS: ADMIT Internal Medicine; ATTEND Internal Medicine
PROC: 4A023N7 Measurement of Cardiac Sampling and Pressure, Left Heart, Percutaneous Approach (ICD-10-PCS; principal; 2020-03-17)
PROC: B2111ZZ Fluoroscopy of Multiple Coronary Arteries using Low Osmolar Contrast (ICD-10-PCS; 2020-03-17)
DX: R07.89 Other chest pain (principal); I50.33 Acute on chronic diastolic (congestive) heart failure; R09.02 Hypoxemia; J44.9 Chronic obstructive pulmonary disease, unspecified; E66.01 Morbid (severe) obesity due to excess calories; E78.5 Hyperlipidemia, unspecified; I25.10 Atherosclerotic heart disease of native coronary artery without angina pectoris; Z20.828 Contact with and (suspected) exposure to other viral communicable diseases; Z68.38 Body mass index [BMI] 38.0-38.9, adult; Z77.120 Contact with and (suspected) exposure to mold (toxic); Z82.49 Family history of ischemic heart disease and other diseases of the circulatory system; Z83.3 Family history of diabetes mellitus; Z85.42 Personal history of malignant neoplasm of other parts of uterus; Z87.891 Personal history of nicotine dependence; Z90.710 Acquired absence of both cervix and uterus; I16.0 Hypertensive urgency; M19.90 Unspecified osteoarthritis, unspecified site; I11.0 Hypertensive heart disease with heart failure; Z90.49 Acquired absence of other specified parts of digestive tract
CPT/HCPCS: 36415; 71045; 71275; 80053; 80061; 81001; 82553; 83605; 83690; 83735; 83880; 84484; 85025; 85379; 85610; 85730; 93005; 93306; 93458; 96360; 99152; 99153; C1769; C1892; J1644; J2250; J3010; J3490; J7030; Q9967; 99285-25; G0378; U0003-CS

== ENCOUNTER → 2020-05-16 | Outpatient (CLI) | payer BC ==
[~2020-05-16] MED LIST changes: +ATOR40TA59 PO
--- NOTE | 2020-05-16 11:20 | RAD ---
CT of the chest without contrast 05/16/2020 Follow-up lung nodule COMPARISON STUDY: CT angiography of the chest March 16, 2020. TECHNIQUE: Multidetector CT imaging of the chest was performed without contrast FINDINGS: Heart size is normal. No significant pericardial effusion is identified. Coronary calcification noted. Limited noncontrast enhanced evaluation of the mediastinum demonstrates small scattered lymph nodes without evidence of pathologically enlarged mediastinal adenopathy. Previously demonstrated right hilar lymph node is poorly delineated without IV contrast. No overt changes identified. Centrilobular emphysema again noted. Very small multifocal linear opacities are seen, most prominently subpleurally appearance suggests scarring. The morphology is unchanged from comparison study. 2 mm subpleural nodule in the left lower lobe is similar (axial image 98). Somewhat nodular opacity in the left lower lobe surrounding the area of emphysematous changes seen morphology is unchanged in the interim. Measures approximately 5 to 6 mm in diameter. (Axial image 126) Linear opacity in the medial right lower lobe measuring 1.1 cm in length and approximately 2 to 3 mm in thickness is unchanged. (Axial image 109) Sessile appearing nodule in the right lower lobe measuring approximately 1 cm in length 3 to 4 mm is also unchanged. (Axial image 188) IMPRESSION: 1. Stable bilateral, multifocal nodular opacities as described above in detail. The appearance is essentially unchanged from comparison study. 6-[address] surveillance is recommended 2. Given imaging evidence of emphysema and provided history of smoking, recommend consideration of annual low-dose CT lung cancer screening. CT DOSING PQRS STATEMENT: One or more of the following individualized dose reduction techniques were utilized for this examination: 1. Automated exposure control 2. Adjustment of the mA and/or kV according to patient size 3. Use of iterative reconstruction technique Electronically signed by: Jonatan Gates MD (05/16/2020 11:17 AM) [id number]
== END | disposition home or self-care (01) ==
LOC: CT 10:12
PROVIDERS: ATTEND Internal Medicine Critical Care Medicine
DX: J43.2 Centrilobular emphysema (principal); R91.8 Other nonspecific abnormal finding of lung field; I25.10 Atherosclerotic heart disease of native coronary artery without angina pectoris; Z87.891 Personal history of nicotine dependence
CPT/HCPCS: 71250

== ENCOUNTER → 2020-11-28 | Outpatient (CLI) | payer OTHER ==
--- NOTE | 2020-11-28 14:14 | RAD ---
EXAM: CT Chest without IV contrast INDICATION: Reason: LUNG NODULE / Spl. Instructions: / History: TECHNIQUE: Multi-detector row CT images were acquired from the thoracic inlet through the upper abdo men without the use of IV contrast. Sagittal and coronal images were acquired from the transaxial mary ellen a. All CT scans performed at this facility utilize dose optimization techniques as appropriate to the exam, including the following: Automated exposure control and adjustment of the mA and/or KV accordi ng to patient size (this includes techniques or standardized protocols for targeted exams where dose is indication/reason for exam). COMPARISON: Noncontrast chest CT 05/16/2020 FINDINGS: The absence of IV contrast limits evaluation of soft tissue pathology. CARDIOVASCULAR: Unremarkable MEDIASTINUM & DANAY: No adenopathy or masses. LUNGS: Centrilobular emphysema is redemonstrated. Stable 2 mm peripheral stress segment left lower lobe pulmonary nodule (image 97 series 3 this exam c ompared with image 98 series 3 on the prior). Stable 5 mm slightly irregular peripheral left upper lobe pulmonary nodule abutting the posterior ple ural surface (image 126 series 3) Slight interval decrease in linear opacity in the posterior superior segment right lower lobe compari ng image 111 of series 3 this examination compared with image 109 of the prior examination. Peripheral right lower lobe irregular opacity with subtle spiculation appears similar measuring 1.6 c m AP by 1.1 cm mediolateral and 0.8 cm craniocaudal on images 197 of axial series 3 and image 66 of c oronal series 5 this examination compared with images 189 of series 3 and 64 series [address] udy. PLEURAL SPACE: No pleural effusions or pneumothorax. OSSEOUS & SOFT TISSUE: No acute or aggressive osseous lesions. No chest wall masses or soft tissue ab normalities otherwise noted. Degenerative changes in the thoracic spine are present, most conspicuous ly at T6-T7, and T8-T9. ABDOMEN: Included upper abdomen shows post prostatectomy surgical changes. IMPRESSION: Centrilobular emphysema with multiple pulmonary nodules as described, mostly stable to slightly decre ased in the interval. Consider additional follow-up CT chest in 6-12 months. Electronically signed by: Perla Polanco MD (11/28/2020 2:12 PM) [id number]
== END ==
LOC: CT 15:48
PROVIDERS: ATTEND Internal Medicine Critical Care Medicine
DX: J43.2 Centrilobular emphysema (principal); R91.1 Solitary pulmonary nodule
CPT/HCPCS: 71250

== ENCOUNTER → 2021-03-03 | Outpatient (CLI) | payer OTHER ==
--- NOTE | 2021-03-03 13:05 | KCIC ---
EXAM: Bilateral screening mammogram. HISTORY: 65-year-old female presents for screening mammography. TECHNIQUE: Full-field digital craniocaudal and mediolateral oblique views of both breasts are obtaine d for evaluation. Computer aided detection was applied. COMPARISON: 12/03/2019 BREAST PARENCHYMAL DENSITY: Level B - Scattered fibroglandular densities. FINDINGS: There is no new suspicious mass, microcalcification or region of architectural distortion. IMPRESSION: BI-RADS Category 1: Negative. RECOMMENDATION: Annual mammography is recommended. If your mammogram demonstrates that you have dense breast tissue, which could hide abnormalities, and if you have other risk factors for breast cancer that have been identified, you might benefit from s upplemental screening tests that may be suggested by your ordering physician. Dense breast tissue, i n and of itself, is a relatively common condition. This information is not provided to cause undue c oncern, but rather to raise your awareness and to promote discussion with your physician regarding th e presence of other risk factors, in addition to dense breast tissue. A report of your mammography re sults will be sent to you and your physician. You should contact your physician if you have any ques tions or concerns regarding this report. Mammography is a sensitive method for finding small breast cancers, but it does not detect them all a nd is not a substitute for careful clinical examination. A negative mammogram does not negate a clin ically suspicious finding and should not result in delay in biopsying a clinically suspicious abnorma lity. PQRS compliance statement - Patient information was entered into a reminder system with a target due date for the next mammogram. "Our facility is accredited by the [employer] Mammography Program." Electronically signed by: Myrna Butler MD (03/03/2021 1:03 PM) [facility]
== END ==
LOC: KCIC MAMMO 12:21
PROVIDERS: ATTEND Family Medicine
DX: Z12.31 Encounter for screening mammogram for malignant neoplasm of breast (principal)
CPT/HCPCS: 77067

== ENCOUNTER → 2021-06-07 | Outpatient (CLI) | payer OTHER ==
--- NOTE | 2021-06-08 08:54 | RAD ---
EXAM: XR CHEST 2V 06/07/2021 2:34 PM CLINICAL INDICATION: Lung nodule COMPARISON: CT chest 11/28/2020 TECHNIQUE: PA and lateral views of the chest FINDINGS: The heart and mediastinum are normal. Lungs are well-expanded. There is an ill-defined no dular opacity at the right lung base, corresponding with a nodule on prior CT. Other small nodules on CT are not well appreciated by radiograph. There is mild scarring in the right apex. No pleural effu heriberto or pneumothorax. There is degenerative disc disease in the thoracic spine. Cholecystectomy clips are noted. IMPRESSION: Ill-defined nodular opacity at the right lung base, corresponding with findings on CT ministerio st 11/28/2020. Other small nodules seen on CT are not well appreciated by radiograph. CT would be more sensitive to evaluate for change in pulmonary nodules. Electronically signed by: Jaycee Austin MD (06/08/2021 8:51 AM) [id number]
== END ==
LOC: RAD 14:14
PROVIDERS: ATTEND Internal Medicine Pulmonary Disease
DX: R91.8 Other nonspecific abnormal finding of lung field (principal); M51.34 Other intervertebral disc degeneration, thoracic region; Z90.49 Acquired absence of other specified parts of digestive tract
CPT/HCPCS: 71046

== ENCOUNTER → 2021-12-06 | Outpatient (CLI) | payer OTHER ==
--- NOTE | 2021-12-06 13:49 | RAD ---
Examination: CT chest without contrast HISTORY: History of lung nodule follow-up COMPARISON: 11/28/2020 TECHNIQUE: Axial CT images of chest were performed without contrast. Coronal and sagittal reformats a re performed Exposure: One or more of the following individualized dose reduction techniques were utilized for thi s examination: 1. Automated exposure control 2. Adjustment of the mA and/or kV according to patient size 3. Use of iterative reconstruction technique FINDINGS: The visualized thyroid gland grossly appears unremarkable. The central airways are patent. Mild cardi omegaly. Mild coronary artery calcifications.No radiologically significant mediastinal lymphadenopath y. Moderate bilateral lung emphysematous changes. Interval increase in size of the lung nodule in the ri ght lower lobe of the lung measuring 1.7 cm (prior 8 mm). Stable 5 mm nodule right upper lobe of the lung, 5 mm nodule right lower lobe. A 7 mm nodule left low er lobe lung likely increase in size compared to prior exam where it measures 5 mm. The visualized no ncontrasted liver, spleen, adrenals grossly appears unremarkable. Moderate degenerative changes thora cic spine. IMPRESSION: 1. Interval increase in size of the lung nodule in the right lower lobe of the lung measuring 1.7 cm (prior 8 mm). Consider further evaluation with PET/CT 2. 7 mm nodule left lower lobe lung likely increase in size compared to prior exam where it measure s 5 mm. Other nodules are stable. 3. Moderate bilateral lung emphysematous changes. Electronically signed by: Leonardo Hung MD (12/06/2021 1:47 PM) [id number]
== END ==
LOC: CT 12:55
PROVIDERS: ATTEND Internal Medicine Critical Care Medicine
DX: R91.8 Other nonspecific abnormal finding of lung field (principal); I51.7 Cardiomegaly; I25.10 Atherosclerotic heart disease of native coronary artery without angina pectoris; J43.9 Emphysema, unspecified; M47.814 Spondylosis without myelopathy or radiculopathy, thoracic region
CPT/HCPCS: 71250

== ENCOUNTER → 2021-12-22 | Outpatient (CLI) | payer OTHER ==
--- NOTE | 2021-12-22 12:21 | RAD ---
NM PET/CT SKULL BASE TO MID THIGH Clinical Indication: Pulmonary nodule Comparison: CT chest December 06, 2021 and November 28, 2020. Technique: Patient blood glucose at the time of injection is 152 mg/dL. The patient was administered 11.8 mCi of F-18 FDG intravenously. The patient rested quietly during a 60 minute uptake period. Then PET imaging from the skull base to the upper thighs was performed. A noncontrast CT was acquired ove r this same area. The CT is for attenuation correction and anatomic localization, it is not of diagno stic quality and is not intended to diagnose disease independently of the PET. PQRS Compliance Statement: One or more of the following individualized dose reduction techniques were utilized for this examinat ion: 1. Automated exposure control 2. Adjustment of the mA and/or kV according to patient size 3. Use of iterative reconstruction technique Findings: Background: Mediastinal SUV max: 3.4 Liver SUV max: 5.0 Head and neck: Mild prominent right level 2 lymph node measures 1.1 x 0.9 cm with SUV max 3.88. Additional mild prom inent left level 2 lymph node measures 1.3 x 1.0 cm SUV max 3.1. Chest: Coronary artery calcification. Small hiatal hernia. Severe pulmonary emphysema. No pleural effusion. No consolidation. No pneumothorax. Right lower lobe nodular opacity measures 1.8 x 1.2 cm (series 3 image 103), unchanged. Low level met abolic activity below background SUV max 1.8. 0.7 cm left lower lobe pulmonary nodule (series 3 image 81), unchanged. Minimal metabolic activity LOZANO V Max 1.35. No pathologic lymphadenopathy. Abdomen and pelvis: Prior cholecystectomy. The liver, spleen, adrenal glands, and pancreas are normal. Duodenal diverticu lum noted. No renal calculus. No hydronephrosis. Decompressed urinary bladder. Colonic diverticulosis. Moderate colonic stool burden. Normal appendix. No evidence of bowel obstruct ion. No hypermetabolic pathologic lymphadenopathy. No ascites. Mild atheromatous plaque throughout th e nonaneurysmal abdominal aorta and branch vessels. Bilateral maxillary sinus because of thickening and secretions. Ethmoid sinus mucosal thickening. Mas toid air cells are clear. Musculoskeletal: There is no evidence of FDG-avid disease. IMPRESSION: 1. Right lower lobe nodule without significant metabolic activity, may represent benign etiology. Co nservatively recommend 3 month follow-up chest CT without contrast. 2. Left lower lobe pulmonary nodule without significant metabolic activity although PET indeterminat e given size. Recommend attention on follow-up. 3. Mild prominent bilateral level 2 lymph nodes with low level metabolic activity, most likely react kieran lymph nodes. Recommend clinical evaluation and follow-up if indicated. Electronically signed by: Bi Francis DO (12/22/2021 11:40 AM) [id number]
== END ==
LOC: PETSC 07:37
PROVIDERS: ATTEND Internal Medicine Critical Care Medicine
DX: R91.8 Other nonspecific abnormal finding of lung field (principal); J43.9 Emphysema, unspecified; K44.9 Diaphragmatic hernia without obstruction or gangrene; I25.10 Atherosclerotic heart disease of native coronary artery without angina pectoris; I70.0 Atherosclerosis of aorta; K57.30 Diverticulosis of large intestine without perforation or abscess without bleeding; K57.10 Diverticulosis of small intestine without perforation or abscess without bleeding; J32.0 Chronic maxillary sinusitis; J32.2 Chronic ethmoidal sinusitis; Z90.49 Acquired absence of other specified parts of digestive tract
CPT/HCPCS: 78815; A9552

== ENCOUNTER 2022-01-15 08:43 | Outpatient (CLI) | payer OTHER ==
[~2022-01-15] VITALS: Ht 149.9 cm; Wt 100.0 kg
[2022-01-15] VITALS (16 sets, daily range): BP systolic 125–166; BP diastolic 52–80
[2022-01-15 09:40] LABS: BASO # 0.1 x10^3/uL (0.0-0.2); BASO % 1 % (0-3); EOS # 0.2 x10^3/uL (0.0-0.7); EOS % 3 % (0-3); HEMATOCRIT 41.2 % (36.0-47.0); HEMOGLOBIN 13.5 g/dL (12.0-15.5); LYMPH % 32 % (24-48); MEAN CORPUSCULAR HEMOGLOBIN 29 pg (25-35); MEAN CORPUSCULAR HGB CONC 33 g/dL (31-37); MEAN CORPUSCULAR VOLUME 88 fL (79-100); MONO # 0.7 x10^3/uL (0.0-1.1); MONO % 8 % (0-9); NEUT # 5.3 x10^3/uL (1.8-7.7); NEUT % 57 % (31-73); PLATELET COUNT 268 x10^3/uL (140-400); RED BLOOD COUNT 4.69 x10^6/uL (3.50-5.40); RED CELL DISTRIBUTION WIDTH 14.1 % (11.5-14.5); WHITE BLOOD COUNT 9.3 x10^3/uL (4.0-11.0)
[2022-01-15 09:48] LABS: PROTHROMBIN TIME PATIENT 12.3 SEC (11.7-14.0)
[2022-01-15] MEDS ORDERED: CRESTOR40 MG PO (10:03)
[2022-01-15] MEDS ORDERED: VIT1TABL34 PO (10:03)
[2022-01-15] MEDS ORDERED: FLUT1BLS3 IH (10:03)
[2022-01-15] MEDS ORDERED: MULT400T5 PO (10:03)
[2022-01-15] MEDS ORDERED: PROAIR RESPICL90 MCG IH (10:03)
[2022-01-15] MEDS ORDERED: fentaNYL PF VIAL 100 MCG/2 ML VIAL ONE (10:13)
[2022-01-15] MEDS ORDERED: MIDAZOLAM HCL/PF 2 MG/2 ML VIAL. ONE (10:13)
[2022-01-15] MEDS ORDERED: LIDOCAINE WITH 8.4% SOD BICARB 3 ML DISP.SYRIN. ONE (10:14)
[2022-01-15] MEDS ORDERED: MIDAZOLAM HCL/PF 2 MG/2 ML VIAL. IV ONE (11:15)
[2022-01-15] MEDS ORDERED: fentaNYL PF VIAL 100 MCG/2 ML VIAL IV ONE (11:15)
[2022-01-15] MEDS ORDERED: LIDOCAINE WITH 8.4% SOD BICARB 3 ML DISP.SYRIN. IJ ONE (11:15)
--- NOTE | 2022-01-15 11:33 | PDOC ---
MODERATE SEDATION ASSESSMENT RISKS/ALTERNATIVES Risks/Alternatives Risks and alternatives of this type of sedation and procedure discussed with: RISK/ALTERNATIVES: Patient H & P ON CHART H & P H & P on chart and reviewed for co-morbid conditions and appropriate labs. H&P ON CHART: Yes STATUS PREG STATUS ASSESSED: Yes MEDS/ALLERGIES REVIEWED Meds/Allergies Reviewed Medications and Allergies including time and route of recently administered narcotics and sedatives. MEDS/ALLERGIES REVIEWED: Yes ASA RATING ASA RATING: II AIRWAY ASSESSMENT Airway Assessment Airway patency, oral function limitations, presence of caps, crowns, dentures, partials, and ability to extend neck assessed. AIRWAY ASSESSMENT: Yes MALLAMPATI SCORE MALLAMPATI SCORE: II PRE-SEDATION ASSESSMENT PRE-SEDATION ASSESSMENT: Yes SUZIE CHIANG MD Jan 15, 2022 11:33
--- NOTE | 2022-01-15 12:08 | RAD ---
Single AP view of the chest. Comparison: 9021. Indication: Evaluate for postbiopsy pneumothorax Findings: The heart is enlarged but stable. There is no pneumothorax or effusion. No air space or interstitial disease. Impression: 1. No acute cardiopulmonary process. No post biopsy pneumothorax identified. Electronically signed by: Dany Sherwood MD (01/15/2022 12:05 PM) [id number]
--- NOTE | 2022-01-15 14:02 | NUR ---
Discharge Note: DION SANTO Discharge instructions and discharge home medications reviewed with Patient and a copy given. All questions have been answered and understanding verbalized. Dressing to R axilla clean and dry, pt states she is feeling better, no SOA The following instructions and handouts were given: lung biopsy, sedation Discontinued lines and drains: Peripheral IV intact. Patient discharged to Home or Self Care with Family Member via Wheelchair NICKOLAS RN Addendum: 01/15/22 at 1413 by CARI GOMEZ RN Amended: Links added.
--- NOTE | 2022-01-15 16:52 | RAD ---
EXAM: XR CHEST INSPIRATION/EXPIRATION 01/15/2022 1:26 PM CLINICAL INDICATION: Status post right lung biopsy. COMPARISON: Chest radiograph 01/15/2022 at 11:38 AM TECHNIQUE: AP inspiratory and expiratory views of the chest were obtained. FINDINGS: The heart is normal in size. Lungs are adequately expanded. There is no pleural effusion o r pneumothorax. IMPRESSION: No pneumothorax. Electronically signed by: Jaycee Austin MD (01/15/2022 4:49 PM) [id number]
--- NOTE | 2022-01-16 11:37 | RAD ---
Procedure: CT-guided right lung nodule biopsy Clinical Indication: Adult female with right lung groundglass nodule Sedation: Conscious sedation using a combination of Versed and fentanyl was provided for 25 minutes, including continuous monitoring of the patients heart rate, rhythm, blood pressure, oxygen saturation and level of arousability by a trained independent observer. Sterility: The procedure was performed in its entirety using appropriate elements of sterile techniqu e. Consent: The procedure was explained in its entirety to the patient or the patients designated repres entative by a member of the treatment team, including a discussion of the risks, benefits and commonl y accepted alternatives to the procedure, as well as the expected consequences of not performing the procedure. Discussion of the risks included, but was not limited to, those that are most frequent an d those that are rare but possibly severe or life-threatening, as well as the possibility of unforese en complications. Technique and Findings: Following informed consent, the patient was prepped and draped in usual steri le fashion. Preliminary CT scan of the area of interest was performed. 1 percent lidocaine was used t o achieve local anesthesia. A small dermatotomy was made. Under periodic CT surveillance, a 19-gauge needle guide was advanced towards the target lesion and multiple separate 20-gauge core biopsy specim ens were obtained and preserved in formalin and nonbacteriostatic saline for microbiologic analysis. A blood patch was applied as the needle guide was removed and hemostasis was achieved with manual com pression. Complications: No immediate Impression: 1. CT-guided right lung nodule biopsy as described. PQRS Compliance Statement: One or more of the following individualized dose reduction techniques were utilized for this examinat ion: 1. Automated exposure control 2. Adjustment of the mA and/or kV according to patient size 3. Use of iterative reconstruction technique Electronically signed by: Efren Regan MD (01/16/2022 11:35 AM) [id number]
--- NOTE | 2022-01-16 16:14 | PATHOLOGY ---
[facility] Accession Number: [id number] . 01 Material submitted: . lung - RIGHT LUNG MASS. Modifiers: right . 01 Clinical history: . RIGHT LUNG MASS . 02 Diagnosis: Lung tissue, right lung mass CT-guided needle biopsies: - Suspicious for adenocarcinoma in situ, non-mucinous type. See comment. (JPM:iv rn; 01/16/2022) MBR 01/16/2022 1020 Local . 02 Comment: Sections of the right lung mass CT-guided needle biopsy reveal segments of lung tissue and small fragments of skeletal muscle tissue. Most of the lung tissue appears relatively normal. There are 2 small foci demonstrating air spaces which are lined by cytologically atypical cells. These cells have modest amounts of eosinophilic, non-mucinous cytoplasm, and possess enlarged rounded to ovoid nuclei containing prominent nucleoli. The findings are suspicious for focal involvement by adenocarcinoma in situ, non-mucinous type. There is no evidence of invasive acinar adenocarcinoma in this biopsy. The case is also examined by Dr. Dempsey and Dr. Crawford, who concur with the diagnosis. The results are discussed with Dr. Machado on 01/16/22 at 12:30 PM. (JPM:iv rn; 01/16/2022) . 02 Electronically signed: . Fred Ross MD, Pathologist NPI- [id number] . 01 Gross description: . The specimen is received in formalin, labeled "Clau William, right lung mass". Received are several needle cores of pale chang friable tissue measuring 0.4 x 0.2 x 0.1 cm in aggregate dimensions. The specimen is filtered and entirely submitted in cassette A1. (CAA; 01/15/2022) QAC/QAC 01/15/2022 1520 Local . 02 Pathologist provided ICD-10: R91.8 . 02 CPT . 463587 Specimen Comment: A courtesy copy of this report has been sent to [phone], [phone] Specimen Comment: [id number] Specimen Comment: Report sent to / DR CHIANG Specimen Comment: A duplicate report has been generated due to demographic updates. Performed at: 01 [facility] [address], [place] [id number] MD Dhruv Estes MD Phone: [phone] Performed at: 02 [facility] [address], [place] [id number] MD Fred Ross MD Phone: [phone]
== END 2022-01-15 14:00 | disposition home or self-care (01) ==
LOC: INTRAD 08:43
PROVIDERS: ATTEND Internal Medicine Critical Care Medicine
DX: R91.8 Other nonspecific abnormal finding of lung field (principal); J93.9 Pneumothorax, unspecified; I10 Essential (primary) hypertension; J44.9 Chronic obstructive pulmonary disease, unspecified; E66.9 Obesity, unspecified; Z90.710 Acquired absence of both cervix and uterus; Z90.49 Acquired absence of other specified parts of digestive tract; Z98.890 Other specified postprocedural states; Z79.899 Other long term (current) drug therapy; Z87.891 Personal history of nicotine dependence; Z72.89 Other problems related to lifestyle
CPT/HCPCS: 32408; 36415; 71045; 71046; 85025; 85610; 87075; 87102; 99152; 99153; J2250; J3010; J3490

== ENCOUNTER → 2022-02-16 | Outpatient (CLI) | payer OTHER ==
[2022-01-15 13:50] VITALS: BP 157/66
[~2022-02-16] MED LIST changes: +CRESTOR40 MG PO; +FLUT1BLS3 IH; +MULT400T5 PO; +PROAIR RESPICL90 MCG IH; +VIT1TABL34 PO
--- NOTE | 2022-02-16 16:41 | CARD ---
MR#: [id number] Date of Study: 02/16/2022 Ordering Physician: YAMILET SAGE, Referring Physician: YAMILET SAGE, Tech: Gabriella Torres [facility] APPROVED REPORT EXAM: Two-dimensional and M-mode echocardiogram with Doppler and color Doppler. Other Information Quality : AverageHR: 80bpm Rhythm : NSR INDICATION Dyspnea RISK FACTORS Hypertension Obesity 2D DIMENSIONS RVDd3.0 (2.9-3.5cm)Left Atrium(2D)4.3 (1.6-4.0cm) IVSd1.2 (0.7-1.1cm)Aortic Root(2D)3.8 (2.0-3.7cm) LVDd4.4 (3.9-5.9cm)PWd0.9 (0.7-1.1cm) LVDs3.1 (2.5-4.0cm)FS (%) 29.2 % SV49.4 mlLVEF(%)56.3 (>50%) Aortic Valve AoV Peak James.169.3cm/[place] Peak GR.11.5mmHg LVOT Peak James.123.9cm/s Mitral Valve MV E Qmmegpwz38.7cm/sMV DECEL [id number] MV A Rwibfiqc41.0cm/sE/A Ratio0.8 Pulmonary Valve PV Peak Fwuphxgx599.8cm/s Tricuspid Valve TR P. [id number]/sRAP INSGNHGV2oxSq TR Peak Gr.34wtKdTARZ35ghUk LEFT VENTRICLE The left ventricle is normal size. There is normal left ventricular wall thickness. The left ventricu lar systolic function is normal. The Ejection Fraction is 55-60%. No regional wall motion abnormaliti es noted. Transmitral Doppler flow pattern is Grade I-abnormal relaxation pattern. No left ventricle thrombus noted on this study. There is no ventricular septal defect visualized. There is no left vent ricular aneurysm. There is no mass noted in the left ventricle. RIGHT VENTRICLE The right ventricle is normal size. There is normal right ventricular wall thickness. The right ventr icular systolic function is normal. ATRIA The left atrium is mildly dilated. The right atrium size is normal. There is a small PFO noted on Dop pler imaging, agitated contrast saline was not performed on this study. AORTIC VALVE The aortic valve is trileaflet. No aortic regurgitation is present. There is no aortic valvular steno sis. There is no aortic valvular vegetation. MITRAL VALVE The mitral valve is normal in structure and function. There is no evidence of mitral valve prolapse. There is no mitral valve stenosis. Doppler and Color Flow revealed mild mitral regurgitation. TRICUSPID VALVE The tricuspid valve is normal in structure and function. Doppler and Color Flow revealed mild tricusp id regurgitation. The PA pressure was estimated at 39 mmHg. There is no tricuspid valve prolapse or v egetation. There is no tricuspid valve stenosis. PULMONIC VALVE The pulmonary valve is normal in structure and function. There is no pulmonic valvular regurgitation. There is no pulmonic valvular stenosis. GREAT VESSELS The aortic root is mildly enlarged, measuring 3.8 cm. The ascending aorta is normal in size. The pulm onary artery is normal. The IVC is normal in size and collapses >50% with inspiration. PERICARDIAL EFFUSION There is no pleural effusion. There is no evidence of significant pericardial effusion. Critical Notification Critical Value: No <Conclusion> The left ventricular systolic function is normal. The Ejection Fraction is 55-60%. No regional wall motion abnormalities noted. Transmitral Doppler flow pattern is Grade I-abnormal relaxation pattern. Mild mitral regurgitation. Mild tricuspid regurgitation. The PA pressure was estimated at 39 mmHg. There is no evidence of significant pericardial effusion. Signed by : Alexander Benites, Electronically Approved : 02/16/2022 16:41:00
== END ==
LOC: ECHO 10:43
PROVIDERS: ATTEND Internal Medicine Cardiovascular Disease
DX: I08.1 Rheumatic disorders of both mitral and tricuspid valves (principal); I77.819 Aortic ectasia, unspecified site; R06.00 Dyspnea, unspecified
CPT/HCPCS: 93306; C8929